=== PATIENT | female | born 1955 | race Caucasian/White ===

== ENCOUNTER → 2021-10-18 12:25 | Outpatient (CLI) | payer MEDICARE, SELFPAY ==
--- NOTE | ~2021-10-18 | MR_ITS ---
EXAMINATION: MR knee RT wo con DATE: 10/18/2021 12:59 INDICATION: Right knee pain. TECHNIQUE: Magnetic resonance imaging (MRI) of the right knee was performed without intravenous contr ast. Sequences included axial PD-weighted FS FSE, coronal PD-weighted FSE and PD-weighted FS FSE, sag ittal PD-weighted FSE, and sagittal T2-weighted FS FSE. COMPARISON: Right knee radiograph 09/27/21 FINDINGS: Medial compartment: Medial meniscus is normal. There is cartilage surface irregularity of tibial condyle. There is shallo w partial-thickness cartilage loss of femoral condyle, worst at the central and lateral articular elena face. Lateral compartment: Lateral meniscus is normal. There is cartilage surface irregularity of tibial condyle. Femoral cartil age is normal. Patellofemoral compartment: There is cartilage surface irregularity of patella. Trochlear cartilage is normal. Ligaments and tendons: The anterior and posterior cruciate ligaments are normal. Medial collateral ligament and lateral britney ateral ligament complex are normal. Patellar tendon is normal. Fluid: There is a small knee joint effusion. There is trace fluid in a Lewis's cyst. IMPRESSION: 1. Mild tricompartmental chondrosis. 2. Small knee joint effusion. Reviewed, dictated and finalized at location A. YTICAL STRATEGIST
== END ==
PROVIDERS: Visit Provider Orthopaedic Surgery
DX: M25.461 Effusion, right knee (principal)
CPT/HCPCS: 73721

== ENCOUNTER 2022-01-12 16:52 | Outpatient (RCR) | payer MEDICARE, SELFPAY ==
--- NOTE | 2022-01-13 13:42 | PTOPEVAL ---
Thank you for referring Shanice Velazquez to [facility].? The patient is scheduled to be seen for therapy? ____x/week for ___ weeks. Please review, sign, date and return this plan of care RAFAL. I agree with and certify that the following plan of care is medically necessary. Referring Physician Date Admitting Provider: Attending Provider: Jeff Georges MD Referring Provider: *PT Outpatient Evaluation Start: 01/12/22 17:07 Freq: Status: Active Protocol: Document 01/12/22 17:05 [facility] (Rec: 01/12/22 17:35 [facility] [id number]) Therapy Assessment Status Assessment Status Assessment Status Evaluation Evaluation Information Problem Diagnosis R knee pain, ITB Onset 11/02/21 Additional Evaluation Detail LEFS = 56% functionally declined Subjective Information patient reports she originally Query Text:As Reported By Patient/ began back in January of 2021 Family when she fell down some stairs . she reports she then had an injection to the R knee in october and her knee swelled up all behind the knee. she reports she then followed up with her surgeon on 01/11/22. she reports she has had an mri of the R knee. 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 MRI shows tricompartmental chondrosis and a knee jt effusion. she reports for a bit of time she was having pain in the outside of the R knee up to the outside of the R hip. she reports she has increased pain crossing her leg over, walking down steps, and driving (hurts to push the gas pedal). Prior Level of Function Comments Additional Prior Level of Function prior to her fall last year, Comments no issues with the R knee. Pain Assessment Timing of Pain Assessment Timing of Pain Assessment Assessment Pain Scale Pain Scale Used Numeric (1 - 10) Self Report Pain Assessment Right Posterior Lateral Knee(s) Reported Pain Level 2 Greatest Pain Intensity 8 Pain Score Pain Score 2: Self Report Interventions Used Interventions Used By Clinicians Medication,Rest Lower Extremity Range of Motion General Lower Extremity Range of Motion Gross Lower Extr
--- NOTE | 2022-02-18 09:16 | PTOPEVAL ---
Thank you for referring Shanice Velazquez to [facility].? The patient is scheduled to be seen for therapy? ____x/week for ___ weeks. Please review, sign, date and return this plan of care RAFAL. I agree with and certify that the following plan of care is medically necessary. Referring Physician Date Admitting Provider: Attending Provider: Jeff Georges MD Referring Provider: *PT Outpatient Evaluation Start: 01/12/22 17:07 Freq: Status: Active Protocol: Document 02/11/22 16:[address] [facility] (Rec: 02/11/22 17:[address] [facility] [id number]) Therapy Assessment Status Assessment Status Assessment Status Evaluation Evaluation Information Problem Diagnosis R knee pain, ITB Onset 11/02/21 Additional Evaluation Detail LEFS = 20% functionally declined Subjective Information Pt reports that she has been Query Text:As Reported By Patient/ able to walk and use steps Family better. She used to have to use steps, one step at a time, rather than going reciprocally. She says that she tried driving for the first time today, but that this exacerbated her knee pain today. Pain Assessment Timing of Pain Assessment Timing of Pain Assessment Pre-Treatment Pain Scale Pain Scale Used Numeric (1 - 10) Self Report Pain Assessment Right Posterior Lateral Knee(s) Reported Pain Level 4 Pain Score Pain Score 4: Self Report Interventions Used Interventions Used By Clinicians Activity or ADL's,Education, Electrical Stimulation, Exercise,Heat Lower Extremity Range of Motion Knee Range of Motion Right Knee Flexion Range of Motion - Active 150 Knee Extension Range of Motion - Active 0 Query Text: Left Knee Flexion Range of Motion - Active 155 Knee Extension Range of Motion - Active 0 Query Text: Lower Extremity Muscle Strength Testing Hip Strength Right Hip Flexion Strength 4- Good - Hip Abduction Strength 4- Good - Left Hip Flexion Strength 4 Good Hip Abduction Strength 4+ Good + Knee Strength Right Knee Flexion Strength 4 Good Knee Extension Strength 4+ Good + Left Knee Flexion Strength 4 Good Knee Extension Strength 4+ Good + Special Tests-Lower Extremity Knee Special Tests Patellofemoral Apprehension Test Negative Left,Positive Right General Exercise General Exercises Exercise Description Ther Ex: Query Text:Record Sets, Reps, - SLR into Flex
--- NOTE | 2022-03-04 22:41 | PTOPEVAL ---
Thank you for referring Shanice Velazquez to [facility].? The patient is scheduled to be seen for therapy? ____x/week for ___ weeks. Please review, sign, date and return this plan of care RAFLA. I agree with and certify that the following plan of care is medically necessary. Referring Physician Date Admitting Provider: Attending Provider: Jeff Georges MD Referring Provider: *PT Outpatient Evaluation Start: 01/12/22 17:07 Freq: Status: Active Protocol: Document 02/25/22 16:00 [facility] (Rec: 03/04/22 22:41 J filej) Therapy Assessment Status Assessment Status Assessment Status Progress Evaluation Information Problem Diagnosis R knee pain, ITB Onset 11/02/21 Subjective Information patient reports to therapy Query Text:As Reported By Patient/ with increased pain again in Family the R knee. she reports she was unable to do much the past week due to her severity of pain. she is worried she is back where she started with therapy. Pain Assessment Timing of Pain Assessment Timing of Pain Assessment Assessment Pain Scale Pain Scale Used Numeric (1 - 10) Self Report Pain Assessment Right Posterior Lateral Knee(s) Reported Pain Level 7 Pain Score Pain Score 7: Self Report Interventions Used Interventions Used By Clinicians Activity or ADL's,Education, Electrical Stimulation, Exercise,Heat Lower Extremity Range of Motion General Lower Extremity Range of Motion Reason Not Measured WNL/Right Palpation Assessment Palpation Palpation tenderness to palpation of the R lateral knee along the ITB and lateral hamstrings band. she is also tender to palpation up the ITB to the greater trochanter of the R hip. Special Tests-Lower Extremity Knee Special Tests Anterior Drawer Negative Right Posterior Drawer Negative Right Valgus Stress Test Knee at 0 Degrees Negative Right Varus Stress Test Knee at 0 Degrees Negative Right Yissel's Negative Right Gait Assessment Gait Pattern Assessment Other Gait Observations patient ambulates with very mild antalgia favoring the R LE. General Exercise General Exercises Exercise Description Ther ex Query Text:Record Sets, Reps, -passive hamstrings stretching Resistance, and Position 10 minutes
--- NOTE | 2022-04-18 16:54 | PCPTNOTE ---
Mrs. Velazquez has failed to return to the clinic at this time and will be discharged from our care. Refer to her last daily note for discharge status.
== END 2022-02-28 23:59 | disposition home or self-care (01) ==
LOC: CHSPT 16:52
PROVIDERS: Visit Provider Orthopaedic Surgery
DX: M25.561 Pain in right knee (principal)
CPT/HCPCS: 97014; 97110; 97140; 97161; G0283

== ENCOUNTER 2022-05-26 11:16 | Emergency (ER) | payer MEDICARE, SELFPAY ==
--- NOTE | ~2022-05-26 | CT_ITS ---
EXAMINATION: CT abdomen pelvis w con DATE: 05/26/2022 14:01 INDICATION: Abdominal pain. History of diverticulitis. TECHNIQUE: Computed tomography (CT) of the abdomen and pelvis was performed with 100 cc Omnipaque 350 intravenous contrast. The dose-length product was 452.45 mGy-cm. Automated exposure control and iter ative reconstruction technique were employed. COMPARISON: None. FINDINGS: There is dependent atelectasis. No significant pleural or pericardial effusion. Heart size normal. The liver, spleen, pancreas, adrenal glands and kidneys are unremarkable. Gallbladder is pres ent. Colonic diverticulosis without evidence for diverticulitis. Small sclerotic lesion in the sacrum , most likely benign bone island. No free air or free fluid. Nonobstructive bowel pattern. Small fat- containing umbilical hernia. No abnormal pelvic masses are fluid collections. Status post hysterectom y. IMPRESSION: 1. No acute abdominal abnormality. Reviewed, dictated and finalized at location A.
[2022-05-26 11:21] VITALS: BP 125/86; PULSE 91; RESP 18; TEMP 36.4; O2SAT 100
[2022-05-26 12:35] LABS: Basophils Percent Auto 0.6 % (0.2-1.2); Eosinophils Absolute Auto 0.1 K/mm3 (0-0.3); Hemoglobin 15.8 g/dL (12.0-15.0); Immature Granulocyte Absolute 0.01 K/mm3 (0.00-0.031); Immature Granulocyte Percent A 0.2 % (0-0.5); Lymphocytes Absolute Auto 2.03 K/mm3 (0.9-3.2); Lymphocytes Percent Auto 39.2 % (18.3-44.2); Mean Corpuscular HGB Conc 32.2 g/dl (32-36); Mean Corpuscular Hemoglobin 30.9 pg (26-34); Mean Corpuscular Volume 95.7 fl (80-100); Mean Platelet Volume 10.6 fl (7.4-10.4); Monocytes Absolute Auto 0.7 K/mm3 (0.1-0.6); Monocytes Percent Auto 13.5 % (2.6-8.5); Neutrophils Absolute Auto 2.4 K/mm3 (1.3-6.7); Neutrophils Percent Auto 45.5 % (45.5-73.1); Platelet Count Result 266 k/mm3 (150-375); Red Blood Count 5.12 M/mm3 (4.2-5.4); Red Cell Distribution Width 12.3 % (11.5-14.5); White Blood Count 5.2 K/mm3 (4.5-10.0)
[2022-05-26 12:46] LABS: Alanine Aminotransferase 26 U/L (6-35); Albumin Level 4.6 g/dL (3.5-5.1); Alkaline Phosphatase 84 U/L (38-126); Anion Gap 9 mmol/L (8-16); Aspartate Amino Transferase 31 U/L (14-36); Bilirubin,Total 0.5 mg/dL (0.2-1.3); Blood Urea Nitrogen 15 mg/dL (7-17); Calcium 9.6 mg/dL (8.4-10.2); Carbon Dioxide 26 mmol/L (22-30); Chloride 104 mmol/L (98-107); Estimated CRCL calculation 59 ml/min; Estimated Glomerular Filt Rate > 60; Glucose 111 mg/dL (65-110); Lipase 110 U/L (23-300); Potassium 4.7 mmol/L (3.4-5.0); Sodium 139 mmol/L (137-145)
[2022-05-26 13:12] LABS: Appearance Urine Clear (Clear); Bilirubin Urine 1+ (Negative); Blood Urine Negative (Negative); Color Urine Yellow (Yellow); Glucose Urine UA Negative (Negative); Ketones Urine 1+ mg/dL (Negative); Leukocyte Esterase Ur Negative LEU/UL (Negative); Nitrate Urine Negative (Negative); Protein Urine Negative (Negative); pH Urine 6.5 (5.0-9.0)
[2022-05-26 13:40] LABS: Mucus Urine Rare /lpf; Squamous Epithelial Cell Urine Rare /hpf (Few); WBC Urine 0-3 /hpf
[2022-05-26 13:43] LABS: Add Urine Microscopic? YES
[2022-05-26] MEDS: SODIUM CHLORIDE 0.9% IV 1,000 ML 999 ML IV CONT (14:09)
--- NOTE | 2022-05-26 14:10 | ED.ABDPAIN ---
HPI - Abdominal Pain General Chief Complaint: Abdominal Pain Stated Complaint: abd pain Time Seen by Provider: 05/26/22 13:14 Source: RN notes reviewed History of Present Illness HPI narrative: Patient presents emergency room from home for abdominal pain. Patient states symptoms began approximately 2 weeks ago. The pain is located left lower quadrant does not radiate described as sharp and stabbing. States that she has a history of diverticulitis and was seen by her PCP diagnosed diverticulitis and started on Augmentin which she completed a course of but continued have pain and came in for further evaluation. She denies any fevers or chills nausea vomiting diarrhea or any other symptoms states she has not taken any Tylenol or ibuprofen today Related Data Home Medications Medication Instructions Recorded Confirmed aspirin 81 mg capsule 81 mg PO DAILY 09/27/21 01/07/22 multivitamin with minerals-ferrous tablet PO DAILY 09/27/21 01/07/22 sulfate 4.5 mg iron tablet (One Daily Multivitamins with Minerals) Allergies Allergy/AdvReac Type Severity Reaction Status Date / Time azithromycin Allergy Unknown Palpitation Verified 01/07/22 09:01 s clonazepam Allergy Unknown Unknown Verified 01/07/22 09:01 codeine Allergy Unknown Hallucinati Verified 01/07/22 09:01 ng morphine Allergy Unknown Hypotension Verified 01/07/22 09:01 Review of Systems Review of Systems: Gen.: Denies fevers or chills ENT: Denies congestion Respiratory: Denies shortness of breath or cough CV: Denies chest pain or palpitations GI: See HPI denies burning, urgency, frequency or hematuria Musculoskeletal: Denies back pain or muscle pain Neuro: Denies numbness, tingling, weakness or focal weakness Skin: Denies rash Except as documented, all other systems reviewed and negative [facility] Past Medical History Medical History Fibromyalgia History of hemangioma History of pulmonary embolism Approx. 2001 Surgical History Surgical History History of ankle surgery 2013 plates and screws Hx of hysterectomy 1989 Family History Family History Other Bladder cancer Carcinoma of colon Depression Social History Social History Substance use: never Gender identity (if verbalized by the patient): Female Exam Narrative: APPEARANCE: No acute distress, nontoxic, resting in bed HEENT: Normocephalic, atraumatic, OMM RESPIRATORY: No respiratory distress, clear to auscultation bilaterally with no rhonchi wheezing or rales CARDIOVASCULAR: RRR s murmur ABDOMINAL: Soft nondistended tender palpation left lower quadrant no tenderness left upper quadrant, right upper quadrant right lower quadrant no rebound or guarding MUSCULOSKELETAl: Moves all extremities. No clubbing, cyanosis or edema. NEURO: Awake and alert. Following commands, speech normal, no focal deficits SKIN:: Warm, dry. Normal Color PSYCHIATRIC: Normal affect/mood Course Course Emergency Course: Repeat abdominal exam shows the patient's abdomen to be soft with no surgical abdomen present. Discussed with patient results of workup and diagnosis. Discussed need for follow-up with primary care physician, reasons to return to the emergency department in proper use of medication. Patient understands and agrees to current treatment plan Vital Signs Vital signs: Vital Signs Temperature 97.6 F 05/26/22 11:21 Pulse Rate 91 05/26/22 11:21 Respiratory Rate 18 05/26/22 11:21 Blood Pressure 125/86 05/26/22 11:21 Pulse Oximetry 100 05/26/22 11:21 Oxygen Delivery Room Air 05/26/22 11:21 Temperature 97.6 F 05/26/22 11:21 Pulse Rate 91 05/26/22 11:21 Respiratory Rate 18 05/26/22 11:21 Blood Pressure 125/86 05/26/22 11:21 Pulse Oxim
[2022-05-26 14:41] VITALS: BP 130/88; PULSE 86; RESP 14; O2SAT 98
== END 2022-05-26 14:41 | disposition home or self-care (01) ==
PROVIDERS: Emergency Medicine; Emergency Provider Emergency Medicine; PCP Family Medicine
DX: R10.32 Left lower quadrant pain (principal); M79.7 Fibromyalgia; Z86.711 Personal history of pulmonary embolism; Z79.82 Long term (current) use of aspirin
CPT/HCPCS: 36415; 74177; 80053; 81001; 83690; 85025; 96365; 99284; J0131; J7030; Q9967

== ENCOUNTER 2022-06-16 12:02 | Outpatient (CLI) | payer MEDICARE, SELFPAY ==
[2022-06-16 12:29] LABS: Add Urine Microscopic? YES; Appearance Urine Cloudy (Clear); Bacteria Urine Trace /hpf; Bilirubin Urine Negative (Negative); Blood Urine 1+ (Negative); Color Urine Yellow (Yellow); Glucose Urine UA Negative (Negative); Ketones Urine Negative (Negative); Leukocyte Esterase Ur 3+ LEU/UL (Negative); Mucus Urine Rare /lpf; Nitrate Urine Negative (Negative); Protein Urine Negative (Negative); RBC Urine 0-2 /hpf (0-2); Specific Grav Ur 1.021 (1.001-1.035); Squamous Epithelial Cell Urine Rare /hpf (Few); Urobilinogen Urine Negative mg/dL (<2.0); WBC Urine 16-20 /hpf
== END 2022-06-16 12:03 | disposition home or self-care (01) ==
PROVIDERS: PCP Family Medicine; Visit Provider Internal Medicine Gastroenterology
DX: R30.0 Dysuria (principal)
CPT/HCPCS: 81001; 87077; 87086; 87186

== ENCOUNTER 2022-07-20 01:12 | Day surgery (SDC) | payer MEDICARE, SELFPAY ==
[2022-07-05 13:32] VITALS: BMI 23.4
--- NOTE | 2022-07-20 08:38 | WPDANESEPPF ---
Anes - Initial Pre Proc Eval Procedure: Operation Date: 07/20/22 11:15 Proposed Procedures p Esophagogastroduodenoscopy & Colonoscopy - Dale Rausch MD Date/Time: 07/20/22 08:38 Surgeon: Dale Rausch MD Pre Op Diagnosis: abd distention, LLQ pain, fam hx colon cancer Patient Data Age: 66 Gender: F Height: 1.7 m Weight: 68 kg Allergies Allergy/AdvReac Type Severity Reaction Status Date / Time azithromycin Allergy Unknown Palpitation Verified 07/20/22 09:59 s clonazepam Allergy Unknown Unknown Verified 07/20/22 09:59 codeine Allergy Unknown Hallucinati Verified 07/20/22 09:59 ng morphine Allergy Unknown Hypotension Verified 07/20/22 09:59 Home Medications Medication Instructions Recorded Confirmed Type aspirin 81 mg capsule 81 mg PO DAILY 09/27/21 07/05/22 History multivitamin with minerals-ferrous 1 tablet PO DAILY 09/27/21 07/05/22 History sulfate 4.5 mg iron tablet (One Daily Multivitamins with Minerals) sertraline 100 mg tablet (Zoloft) 100 mg PO DAILY #30 tabs 11/02/21 07/05/22 Rx acyclovir 400 mg tablet 400 mg PO .PRN 06/16/22 07/05/22 History lorazepam 1 mg tablet 1 mg PO DAILY PRN aniety 06/16/22 07/05/22 History Patient hx anesthesia problems: none Family hx anesthesia problems: none Results Review: All pre-operative results and documents have been reviewed as part of the pre-operative evaluation. [facility] Past Medical History Medical History (Updated 06/16/22 @ 12:01 by Dale Rausch MD) Bloating Colon, diverticulosis Dysuria Family history of colon cancer in mother Fibromyalgia History of hemangioma History of pulmonary embolism Approx. 2001 LLQ pain Surgical History Surgical History History of ankle surgery 2013 plates and screws Hx of hysterectomy 1989 Family History Family History Other Bladder cancer Carcinoma of colon Depression Social History Social History (Reviewed 06/16/22 @ 11:25 by Liz Burroughs CMAGeorge Smoking status: Never smoker Alcohol intake: never Substance use: never Substance use type: does not use Living arrangements: with family Gender identity (if verbalized by the patient): Female Spiritual care concerns: No Anes - Eval Final PreProcedure Day of Procedure 07/20/22 08:38 Patient weight: normal Heart: regular rate and rhythm Lungs: clear to auscultation and normal air movement Airway: Mallampati scale class II Neurological: alert and oriented Last oral intake: >/= 8 hours ASA classification: II Emergent: no Anesthetic plan: proceed Anesthesia type and monitoring: general GIVS Results Review: All pre-operative results and documents have been reviewed as part of the pre-operative evaluation. Informed Consent: The patient's anesthetic plan and its attendant risks and benefits were discussed with the patient/family/POA. Questions were solicited and answers provided to the satisfaction of the patient/family/POA.
[2022-07-20 10:00] VITALS: BP 134/97; PULSE 93; RESP 18; TEMP 36.1; O2SAT 100
[2022-07-20] MEDS: LACTATED RINGERS 1,000 ML 150 ML IV CONT (10:11)
--- NOTE | 2022-07-20 10:55 | PM.HPGS ---
History of Present Illness History of Present Illness Consent: Risks, benefits, and alternatives have been discussed and questions answered. Patient agrees to proceed with procedure. Chief complaint: abd distention, LLQ pain, fam hx colon cancer Narrative: Shanice Velazquez is a 66 year old female here for first EGD and colonoscopy, had intermittent pain in llq and also bloating. Mother had colon cancer. Review of Systems Constitutional: Constitutional: Denies headache(s) and Denies weakness Eyes: Eyes: Denies blurry vision ENT: Reports Normal hearing present, Denies headache(s) and Denies neck pain Cardiovascular: Cardiovascular: Denies chest pain and Denies dyspnea Respiratory: Respiratory: Denies dyspnea Gastrointestinal: Gastrointestinal: Reports no additional gastrointestinal complaints Genitourinary: Genitourinary: Denies dysuria Musculoskeletal: Musculoskeletal: Denies neck pain Integumentary/Breasts: Skin/Breast: Denies dry skin Neurologic: Reports Normal hearing present, Denies headache(s) and Denies weakness Psychiatric: Psychiatric: Denies anxiety Endocrine: Endocrine: Denies change in body appearance Hematologic/Lymphatic: Hematologic/Lymphatic: Denies easy bleeding Allergic/Immunologic: Allergic/Immunologic: Denies urticaria PMFSH Past Medical History Medical History (Updated 06/16/22 @ 12:01 by Dale Rausch MD) Bloating Colon, diverticulosis Dysuria Family history of colon cancer in mother Fibromyalgia History of hemangioma History of pulmonary embolism Approx. 2001 LLQ pain Surgical History Surgical History History of ankle surgery 2013 plates and screws Hx of hysterectomy 1989 Family History Family History Other Bladder cancer Carcinoma of colon Depression Social History Social History Smoking status: Never smoker Alcohol intake: never Substance use: never Substance use type: does not use Living arrangements: with family Gender identity (if verbalized by the patient): Female Spiritual care concerns: No Meds Home Medications and Allergies Home Medications Medication Instructions Recorded Confirmed Type aspirin 81 mg capsule 81 mg PO DAILY 09/27/21 07/05/22 History multivitamin with minerals-ferrous 1 tablet PO DAILY 09/27/21 07/05/22 History sulfate 4.5 mg iron tablet (One Daily Multivitamins with Minerals) sertraline 100 mg tablet (Zoloft) 100 mg PO DAILY #30 tabs 11/02/21 07/05/22 Rx acyclovir 400 mg tablet 400 mg PO .PRN 06/16/22 07/05/22 History lorazepam 1 mg tablet 1 mg PO DAILY PRN aniety 06/16/22 07/05/22 History Allergies Allergy/AdvReac Type Severity Reaction Status Date / Time azithromycin Allergy Unknown Palpitation Verified 07/20/22 09:59 s clonazepam Allergy Unknown Unknown Verified 07/20/22 09:59 codeine Allergy Unknown Hallucinati Verified 07/20/22 09:59 ng morphine Allergy Unknown Hypotension Verified 07/20/22 09:59 Vital Signs Vital Signs - 24 hr 07/20/22 10:00 Temperature 97 F L Pulse Rate 93 Respiratory Rate 18 Blood Pressure 134/97 H Pulse Oximetry 100 Oxygen Delivery Room Air Exam Const: General: comfortable and no acute distress HENMT: Face/Nose/Sinus: Normal nares present Eyes: General: appearance normal, both eyes and all related structures Neck: Neck: no JVD Resp: Auscultation: clear to auscultation bilaterally Cardio: Rate: regular rate Rhythm: regular rhythm GI: Inspection: non-distended GI Palp: Yes Soft to palpation Skin: General skin exam: normal color Neuro: General: gait normal Speech: normal speech Extrem: General: normal to inspection Psych: Mental Status: mental status grossly normal Assessment and Plan Assessment and plan (1) Bloating: Co
--- NOTE | 2022-07-20 11:14 | SUR.OPER ---
EGD: [id number] COLON: [id number]
[2022-07-20 11:32] VITALS: BP 90/53; PULSE 82; RESP 22; O2SAT 100
[2022-07-20 11:42] VITALS: BP 97/65; PULSE 77; RESP 16; O2SAT 100
[2022-07-20 11:52] VITALS: BP 107/60; PULSE 68; RESP 17; O2SAT 100
== END 2022-07-20 12:08 | disposition home or self-care (01) ==
PROVIDERS: PCP Family Medicine; Visit Provider Internal Medicine Gastroenterology
PROC: 0DJ08ZZ Inspection of Upper Intestinal Tract, Via Natural or Artificial Opening Endoscopic (ICD-10-PCS; CPT 43235; principal; 2022-07-20 11:15)
DX: D12.3 Benign neoplasm of transverse colon (principal); D12.5 Benign neoplasm of sigmoid colon; K57.30 Diverticulosis of large intestine without perforation or abscess without bleeding; K64.8 Other hemorrhoids; Z80.0 Family history of malignant neoplasm of digestive organs; R14.0 Abdominal distension (gaseous)
CPT/HCPCS: 45380; 45385; 43239; 88305; J2370; J2704; J3010; J7120

== ENCOUNTER 2023-07-11 08:13 | Outpatient (CLI) | payer MEDICARE, SELFPAY ==
--- NOTE | ~2023-07-11 | XR_ITS ---
XR knee RT min 4V 07/11/2023 08:52 Indication: Right knee pain Procedure: 4 views right knee Comparison: 09/27/2021 Findings: No fracture, subluxation or dislocation. No joint effusion. No foreign bodies. No significa nt joint space narrowing. There is anatomic alignment. Impression: 1: No significant bone or joint abnormality. Reviewed, dictated and finalized at location L. TANNER Impression: 1: No significant bone or joint abnormality.
== END 2023-07-11 08:14 | disposition home or self-care (01) ==
LOC: CHSLAB 08:17
PROVIDERS: PCP Family Medicine; Visit Provider Orthopaedic Surgery
DX: M25.561 Pain in right knee (principal)
CPT/HCPCS: 73564

== ENCOUNTER 2024-11-08 16:27 | Emergency (ER) | payer MEDICARE, SELFPAY ==
--- NOTE | ~2024-11-08 | XR_ITS ---
HISTORY: Fall, b/l wrist pain COMPARISON: None TECHNIQUE: 3 views of the left wrist were performed. FINDINGS: No acute fracture is identified. The carpal arcs are intact. Mild radiocarpal joint space narrowing with sclerosis of the distal radius is present. The remaining visualized joint spaces are otherwise preserved. Bone mineralization is unremarkable. No significant soft tissue swelling is noted. No radiopaque foreign body is identified. IMPRESSION: No acute fracture, Reviewed, dictated and finalized at location A. IMPRESSION: No acute fracture,
--- NOTE | ~2024-11-08 | XR_ITS ---
HISTORY: Fall, b/l knee pain COMPARISON: 07/11/2023 TECHNIQUE: 3 views of the right knee were performed. FINDINGS: No acute or subacute fracture, erosion, lytic or sclerotic lesion. Medial tibiofemoral joint space narrowing is identified. No suprapatellar joint effusion is identified. The infrapatellar joint space is clear. IMPRESSION: No acute fracture, as detailed above. Reviewed, dictated and finalized at location A.
--- NOTE | ~2024-11-08 | XR_ITS ---
HISTORY: Fall, b/l knee pain, Lt. knee swelling COMPARISON: None TECHNIQUE: 3 views of the left knee were performed FINDINGS: No acute or subacute fracture, erosion, lytic or sclerotic lesion. Significant medial tibiofemoral joint space narrowing is identified. Small suprapatellar joint effusion is identified. The infrapatellar joint space is clear. IMPRESSION: Small suprapatellar joint effusion. Significant degenerative disease. No acute fracture. Reviewed, dictated and finalized at location A.
--- NOTE | ~2024-11-08 | XR_ITS ---
HISTORY: Fall, b/l wrist pain COMPARISON: None TECHNIQUE: 3 views of the right wrist were performed. FINDINGS: No acute fracture is identified. The carpal arcs are intact. Mild radiocarpal joint space narrowing with sclerosis of the distal radius is present. The remaining visualized joint spaces are otherwise preserved. Bone mineralization is unremarkable. No significant soft tissue swelling is noted. No radiopaque foreign body is identified. IMPRESSION: No acute fracture within the right wrist, as detailed Reviewed, dictated and finalized at location A.
[2024-11-08 16:27] VITALS: BP 156/68; PULSE 66; RESP 16; TEMP 36.2; O2SAT 98
--- OUTSIDE RECORDS SUMMARY | 2024-11-08 16:29 | XMS_ITS | Clinical Summary ---
Author Organization [facility] Address [address] [place] [address] Care Team Providers Care Lead Worker Of Housekeeping And Laundry Name Role Phone Emile Gongora MD Primary Care Provider [phone] Allergies Active Allergy Reactions Criticality Noted Date Comments Clonidine Rash Medium 02/06/2021 Corticosteroids (Glucocorticoids) Palpitations Low 02/06/2021 Gabapentin Headache Low 02/06/2021 Hydrocodone-Acetaminophen Hallucinations Medium 2020 Pregabalin Palpitations Low 02/06/2021 Meloxicam Unknown 02/06/2021 Methylprednisolone Palpitations Low 02/06/2021 Morphine Hallucinations Medium 02/06/2021 Naproxen Rash Medium 02/06/2021 Topiramate Headache Low 02/06/2021 Tramadol Itching Low 02/06/2021 Oxcarbazepine Rash Medium 02/06/2021 Azithromycin Palpitations Low 02/06/2021 Zonisamide Other (See comments) Low 02/06/2021 Tingling Medications fluticasone propionate (CUTIVATE) 0.005 % ointment fluticasone propionate 0.005 % topical ointment Active fluticasone propionate (FLONASE) 50 mcg/actuation nasal spray fluticasone 50 mcg/actuation nasal spray,suspensio n One spray in each nostril bid as needed Active Lactobacillus acidophilus 10 billion cell capsule Probiotic Take 1 Tablet by oral route daily Active LORazepam (ATIVAN) 2 mg tablet lorazepam 2 mg tablet TAKE 1 TABLET BY MOUTH ONCE DAILY NEEDED FOR ANXIETY 8 Active mupirocin (BACTROBAN) 2 % creamIndications :peritoneal dialysis catheter care Apply topically 3 (three) times a day Active sertraline (ZOLOFT) 100 mg tablet Take 1 tablet (100 mg total) by mouth daily 90 tablet 4 3 Active Active Problems Problem Noted Date Diagnosed Date Recurrent major depression 05/13/2022 Elbow sprain, right, initial encounter Right wrist sprain, initial encounter 02/06/2021 Contusion of right knee 02/06/2021 Contusion of left knee 02/06/2021 Sprain of anterior talofibular ligament of left ankle 02/06/2021 Contusion of fifth toe of right foot 02/06/2021 Contusion of fourth toe of left foot 02/06/2021 Accidental fall on or from stairs or steps 02/06 Encounters Date Type Department Care Team Description 11/08/2024 [facility] [address] [address] Diane Garcia MA 10/28/[address] [address] Diane Garcia MA Unsuccessful Phone Call 1 (Mahesh CHAUHAN) from Last 3 Months Immunizations Immunization Administration Dates Next Due Influenza, Quadrivalent, Rec ombinant, Egg Free, Preservative Free, Intramuscular 07/10/2020 Influenza, Unspecified 05/13/2022(Deferr ed: Patient Refused),04/21/2021(Deferred: Patient Refused) Pfizer SARS-CoV-2 Monovalent Vaccination (12+ Yrs) PURPLE 03/07/2022,11/14/2020,10/24/2020 Surgical History Surgery Date Site/Laterality Comments ANKLE SURGERY HYSTERECTOMY APPENDECTOMY ELBOW SURGERY Medical History Medical History Date Comments Depression Back pain Right arm pain Family History Medical History Relation Name Comments Bladder Cancer Father Colon cancer Mother Relation Name Status Comments Father Alive Mother Social History Tobacco Use Types Packs/Day Years Used Date Smoking Tobacco: Never Smokeless Tobacco: Never Tobacco Cessation:Counseling Given: Not Answered PHQ-2 Answer Date Recorded PHQ-2 Total Score 0 05/13/2022 Comments No Sex and Gender Information Value Date Recorded Sex Assigned at Not on file 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 Gender Identity Not on file Sexual Orientation Not on file Obstetrics History Last Filed Vital Signs Vital Sign Reading Time Taken Comments Blood Pressure 116/78 05/13/2022 8:47 AM CDT Pulse 100 05/13/2022 8:47 AM CDT Temperature 36.4 C (97.6 F) 05/13/2022 8:47 AM CDT Respiratory Rate 16 05/13/2022 8:47 AM CDT Oxygen Saturation 96% 05/13/2022 8:47 AM CDT Inhaled Oxygen Concentration - - Weight 71.4 kg (157 lb 6.4 oz) 05/13/2022 8:47 A M CDT Height 170.2 cm (5' 7 ) 05/26/2021 1:58 PM CDT Body Mass Index 24.65 05/26/2021 1:58 PM CDT Plan of Treatment Health Maintenance Due Date Last Done Comments Breast Cancer Screening-Mammogram 1955 Hepatitis C Screening 1955 Osteoporosis Screening-Bone Density Scan 1955 DTaP/Tdap/Td Vaccine (1 - Tdap) 1966 Hepatitis B Screening 1973 Pneumococcal vaccine 65+ (1 of 1 - PCV) 2005 Zoster Vaccine (1 of 2) 2005 Well Visit 65+ 2020 Depression Screening 05/13/2023 05/13/2022 Fall Risk Assessment 05/13/2023 05/13/2022 Covid-19 Vaccine (6 - 2023-2 5 season) 2024 03/07/2022, 03/07/2022, 07/22/2021, Additional history exists Influenza Vaccine (#1) 2024 07/10/2020 Colon Cancer Screening-Colonoscopy 07/20/2032 07/20/2022 Colon Cancer Screening-CT Colonography Discontinued 07/20/2022 Colon Cancer Screening-DNA Stool Discontinued 07/20/20 Colon Cancer Screening-FIT Discontinued 07/20/2022 Colon Cancer Screening-Sigmoidoscopy Discontinued 07/20/2022 Procedures Procedure Name Priority Date/Time Associated Diagnosis Comments HM COLONOSCOPY Routine 07/20/2022 from Last 3 Months or Most Recently Relevant to Health Maintenance Results * HM COLONOSCOPY (07/20/2022) us Historical Provider HEALTH MAINTENANCE Edited Result - Final from Last 3 Months or Most Recently Relevant to Health Maintenance Insurance [facility] [place] [id number] [employer] MEDICARE Care Teams Lead Worker Of Housekeeping And Laundry Relationship Specialty Start Date End Date Emile Gongora MD [address] [place] [address] PCP - General Family Medicine 05/23/22
--- OUTSIDE RECORDS SUMMARY | 2024-11-08 16:29 | XMS_ITS | Encounter Summary ---
Author Organization [facility] Address [address] [place] [address] Care Team Providers Care Electrode Cleaning Machine Operator Name Role Phone Emile Gongora MD Primary Care Provider [phone] Reason for Visit * Reason Comments Chart Review [employer] AWV Encounter Details Date Type Department Care Team (Late st Contact Info) Description 11/08/2024 [facility] Care Organization [address] [place] [address] Diane Garcia MA [address] [facility] [address] [place] [address] Social History Tobacco Use Types Packs/Day Years Used Date Smoking Tobacco: Never Smokeless Tobacco: Never PHQ-2 Answer Date Recorded PHQ-2 Total Score 0 05/13/2022 Comments No Sex and Gender Information Value Date Recorded Sex Assigned at Not on file 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 Patient has been identified by their insurance plan to have a [employer] AWV gap in care. Chart has been scrubbed and Patietn scheduled for AWV on 05/20/2025 . Current open gaps in care: [employer] AWV NEGRA Stephenson Patient Quality Glove Operator [facility] Accountable care Org (ACO) [phone] documented in this encounter Plan of Treatment Not on file documented as of this encounter Visit Diagnoses Not on filedocumented in this encounter Care Teams Electrode Cleaning Machine Operator Relationship Specialty Start Date End Date Emile Gongora MD [address] [place] [address] PCP - General Family Medicine 05/23/22 documented as of this encounter
--- OUTSIDE RECORDS SUMMARY | 2024-11-08 16:29 | XMS_ITS | Encounter Summary ---
Author Organization [facility] Address [address] [facility] [address] [place] [address] Phone Care Team Providers Care Program Professional Name Role Phone Miscellaneous, Not In File Primary Care Provider Unavailable Miscellaneous, Not In File Primary Care Provider Unavailable Emile Gongora MD Primary Care Provider [phone] Encounter Details Date Type Department Care Team (Late st Contact Info) Description 08/05/2018 Ophth Exam [facility] Ophthalmology [address] [place] [address] [address] [place] [address] Taty Hernandez MD PhD [address] [place] [address] Social History Tobacco Use Types Packs/Day Years Used Date Smoking Tobacco: Never Assessed Comments Unknown Sex and Gender Information Value Date Recorded Sex Assigned at Not on file 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 Gender Identity Not on file Sexual Orientation Not on file documented as of this encounter Plan of Treatment Not on file documented as of this encounter Visit Diagnoses Not on filedocumented in this encounter Additional Health Concerns Infection Onset Date Last Indicated Resolved Time COVID: Suspected 05/26/2021 05/26/2021 05/26/2021 2:31 PM CDT documented as of this encounter Eye Exam Visual Acuity (near card) Right eye Left eye Near sc 20/20 20/20 Tonometry (Tonopen, 2:00 AM) Right eye Left eye Pressure 11 10 Pupils Pupils Dark Light Shape React APD Right eye PERRL 4 2 Round Brisk None Left eye PERRL 4 2 Round Brisk None Visual Menard Right eye Left eye Full Full Extraocular Movement Right eye Left eye Full Full Neuro/Psych Oriented x3: Yes Mood/Affect: Normal Dilation Both eyes: 1.0% Mydriacyl, 2 .5% Phenylephrine @ 8:33 AM External Exam Right eye Left eye External Normal Normal Slit Lamp Exam Right eye Left eye Lids/Lashes Normal Normal Conjunctiva/Sclera White and quiet White and radha et Cornea Clear Clear Anterior Chamber Shallow by VanHerick, quiet Sha llow by VanHerick, quiet Iris Round and reactive Round and brian ctive Lens Clear Clear Vitreous Normal, no surendra's sign Normal, no surendra's sign. Large PVD Fundus Exam Right eye Left eye Disc Normal Normal C/D Ratio 0.3 0.3, pigmented r im superonasally Macula Normal Normal Vessels Normal Normal Periphery No RT/RD or heme No RT/RD or hem e on scleral depressed exam Care Teams Program Professional Relationship Specialty Start Date End Date Miscellaneous, Not In File PCP - General 08/04/18 Miscellaneous, Not In File PCP - General 05/13/22 [place] [address] PCP - General Family Medicine 05/23/22 documented as of this encounter
--- OUTSIDE RECORDS SUMMARY | 2024-11-08 16:29 | XMS_ITS | Data Portability ---
Author Organization [facility] - Milka Elias frederickDIANN_[place]IS[place]G_[place] [facility]_U Address [address] [place] [address] Care Team Providers Care Ditch Repairer Name Role Phone MASON CAPUTO II Primary Care Provider Assessment No assessment recorded. Plan of Treatment Reminders Order Date Submit Date Provider Last Modified By Organization Details Last Modified Time Details Appointments None record ed. Lab None record ed. Referral None record ed. Procedures None record ed. Surgeries None record ed. Imaging None record ed. Medication Orders None record ed. Patient TargetsNo targets recorded. Patient Instructions Encounter Date Encounter Id Patient Instructions Last Modified By Organization Details Last Modified Time 08/02/2019 [id number] healthy upper back: exercises [email or web address] Not available 08/02/2019 15:54:17 08/29/2019 [id number] healthy upper back: exercises [email or web address] Not available 09/04/2019 08:36:54 09/13/2019 [id number] healthy upper back: exercises [email or web address] Not available 09/14/2019 22:27:22 10/25/2019 [id number] healthy upper back: exercises [email or web address] Not available 10/27/2019 15:47:10 02/14/2020 [id number] healthy upper back: exercises [email or web address] Not available 02/14/2020 10:11:24 Reason for Referral None Reported. Results Created Date Observation Date Name Description Value Unit Range Abnormal Flag Note LastModifiedBy Organization Detail LastModifiedTime 07/12/20 19 07/12/2019 urina lysis , compl ete UA color YELLOW Not Available [facility] (Lab) [address] [place], [address], 07/12/2019 22:15:33 07/12/20 19 07/12/2019 urina lysis , compl ete UA appear CLEAR Not Available [facility] (Lab) [address] [place], [address], 07/12/2019 22:15:33 07/12/20 19 07/12/2019 urina lysis , compl ete UA spec grav 1.003 1.005- 1.029 low Not Available [facility] (Lab) [address] [place], [address], 07/12/2019 22:15:33 07/12/20 19 07/12/2019 urina lysis , compl ete UA pH 7.0 5.0-7. 0 Not Available [facility] (Lab) [address] [place], [address], 07/12/2019 22:15:33 07/12/20 19 07/12/2019 urina lysis , compl ete UA protein NEG negati ve Not Available [facility] (Lab) [address] [place], [address], 07/12/2019 22:15:33 07/12/20 19 07/12/2019 urina lysis , compl ete UA glucose NEG negati ve Not Available [facility] (Lab) [address] [place], [address], 07/12/2019 22:15:33 07/12/20 19 07/12/2019 urina lysis , compl ete UA ketones NEG negati ve Not Available [facility] (Lab) [address] [place], [address], 07/12/2019 22:15:33 07/12/20 19 07/12/2019 urina lysis , compl ete UA bili NEG negati ve Not Available [facility] (Lab) [address] [place], [address], 07/12/2019 22:15:33 07/12/20 19 07/12/2019 urina lysis , compl ete UA blood NEG negati ve Not Available [facility] (Lab) [address] [place], [address], 07/12/2019 22:15:33 07/12/20 19 07/12/2019 urina lysis , compl ete UA nitrite NEG negati ve Not Available [facility] (Lab) [address] [place], [address], 07/12/2019 22:15:33 07/12/20 19 07/12/2019 urina lysis , compl ete UA urobilinogen 0.2 eu/dL 0.2-1. 0 Not Available [facility] (Lab) [address] [place] [address], [address], 07/12/2019 22:15:33 07/12/20 19 07/12/2019 urina lysis , compl ete UA leuk est NEG negati ve Not Available [facility] (Lab) [address] [place], [address], 07/12/2019 22:15:33 07/12/20 19 07/12/2019 urina lysis , compl ete UA WBC 0 /hpf 0-5 Not Available [facility] (Lab) [address] [place], [address], 07/12/2019 22:15:33 07/12/20 19 07/12/2019 urina lysis , compl ete UA RBC 0 /hpf 0-4 Not Available [facility] (Lab) [address] [place], [address], 07/12/2019 22:15:33 07/12/20 19 07/12/2019 urina lysis , compl ete UA bacteria NEGATI VE Not Available [facility] (Lab) [address] [place], [address], 07/12/2019 22:15:33 07/12/20 19 07/12/2019 urina lysis , compl ete UA sq epithel 1 /hpf 0-9 Not Available [facility] (Lab) [address] [place] [address], [address], 07/12/2019 22:15:33 07/12/20 19 07/12/2019 urina lysis , compl ete UA hyal cast 0 /lpf 0-8 Not Available [facility] (Lab) [address] [place] [address], [address], 07/12/2019 22:15:33 07/12/20 19 07/12/2019 CBC WBC 4.9 x1000 /mm3 4.5-10 .3 Not Available [facility] (Lab) [address] [place] [address], [address], 07/12/2019 22:32:07 07/12/20 19 07/12/2019 CBC RBC 5.25 x1000 000/m m3 4.20-5 .40 Not Available [facility] (Lab) [address] [place] [address], [address], 07/12/2019 22:32:07 07/12/20 19 07/12/2019 CBC HGB 16.0 gm/dL 12.0-1 6.0 Not Available [facility] (Lab) [address] [place] [address], [address], 07/12/2019 22:32:07 07/12/2007/12/2019 CBC HCT 50.8 % 36.0-4 8.0 high Not Available [facility] (Lab) [address] [place] [address], [address], 07/12/2019 22:32:07 07/12/20 19 07/12/2019 CBC MCV 97 fL 78-98 Not Available [facility] (Lab) [address] [place] [address], [address], 07/12/2019 22:32:07 07/12/20 19 07/12/2019 CBC MCH 30.5 pg 26.0-3 4.0 Not Available [facility] (Lab) [address] [place], [address], 07/12/2019 22:32:07 07/12/20 19 07/12/2019 CBC MCHC 31.5 gm/dL 32.0-3 6.0 low Not Available [facility] (Lab) [address] [place], [address], 07/12/2019 22:32:07 07/12/20 19 07/12/2019 CBC RDW 12.4 % 11.5-1 4.5 Not Available [facility] (Lab) [address] [place], [address], 07/12/2019 22:32:07 07/12/20 19 07/12/2019 CBC platelet 163 x1000 /mm3 150-50 0 Not Available [facility] (Lab) [address] [place], [address], 07/12/2019 22:32:07 07/12/2007/12/2019 HbA1c (hemo globi n A1c), blood HGB A1C 5.3 % 4.5-6. 0 Testi ng Perfo rmed at [facility], [address] [facility] Not Available [facility] (Lab) [address] [place], [address], 07/12/2019 22:39:31 07/12/2007/12/2019 HbA1c (hemo globi n A1c), blood estimated average glucose 105 mg/dL Not Available [facility] (Lab) [address] [place], [address], 07/12/2019 22:39:31 07/12/2007/13/2019 T4, free, serum T4 free 1.29 NG/dL 0.70-1 .80 Not Available [facility] (Lab) [address] [place], [address], 07/13/2019 03:28:23 07/12/20 19 07/13/2019 vitam in D, 25-hy droxy , total , serum vitamind 25-hyd 42.4 NG/mL 20.0-5 0.0 Vitam in D Statu s Range Defic iency <20 ng/mL Insuf ficie ncy 20 - 30 ng/mL Suffi cienc y 31 - 100 ng/mL Toxic ity >100 ng/mL Not Available [facility] (Lab) [address] [place] [address], [address], 07/13/2019 03:28:24 07/12/20 19 07/13/2019 CMP, serum or plasm a albumin 4.4 gm/dL 3.5-5. 0 Not Available [facility] (Lab) [address] [place] [address], [address], 07/13/2019 03:28:29 07/12/20 19 07/13/2019 CMP, serum or plasm a calcium, serum 9.3 mg/dL 8.7-10 .4 Not Available [facility] (Lab) [address] [place] [address], [address], 07/13/2019 03:28:29 07/12/2007/13/2019 CMP, serum or plasm a T. protein 6.4 gm/dL 6.4-8. 3 Not Available [facility] (Lab) [address] [place] [address], [address], 07/13/2019 03:28:29 07/12/2007/13/2019 CMP, serum or plasm a glucose level 80 mg/dL 74-106 Not Available [facility] (Lab) [address] [place], [address], 07/13/2019 03:28:29 07/12/20 19 07/13/2019 CMP, serum or plasm a BUN 16 mg/dL 6-20 Not Available [facility] (Lab) [address] [place], [address], 07/13/2019 03:28:29 07/12/2007/13/2019 CMP, serum or plasm a creatinine level 0.8 mg/dL 0.5-1. 2 Not Available [facility] (Lab) [address] [place] [address], [address], 07/13/2019 03:28:29 07/12/2007/13/2019 CMP, serum or plasm a bili total 0.6 mg/dL 0.2-1. 2 Not Available [facility] (Lab) [address] [place] [address], [address], 07/13/2019 03:28:29 07/12/2007/13/2019 CMP, serum or plasm a alk phos 74 U/L 41-121 Not Available [facility] (Lab) [address] [place], [address], 07/13/2019 03:28:29 07/12/2007/13/2019 CMP, serum or plasm a AST 39 U/L 13-35 high Not Available [facility] (Lab) [address] [place], [address], 07/13/2019 03:28:29 07/12/2007/13/2019 CMP, serum or plasm a sodium 137 mmol/ L 136-14 5 Not Available [facility] (Lab) [address] [place], [address], 07/13/2019 03:28:29 07/12/2007/13/2019 CMP, serum or plasm a potassium 4.0 mmol/ L 3.4-5. 1 Not Available [facility] (Lab) [address] [place], [address], 07/13/2019 03:28:29 07/12/2007/13/2019 CMP, serum or plasm a chloride 100 mmol/ L 98-110 Not Available [facility] (Lab) [address] [place], [address], 07/13/2019 03:28:29 07/12/2007/13/2019 CMP, serum or plasm a CO2 26 mmol/ L 21-32 Not Available [facility] (Lab) [address] [place], [address], 07/13/2019 03:28:29 07/12/20 19 07/13/2019 CMP, serum or plasm a agap 11.0 Not Available [facility] (Lab) [address] [place], [address], 07/13/2019 03:28:29 07/12/2007/13/2019 CMP, serum or plasm a ALT 52 U/L 7-35 high Not Available [facility] (Lab) [address] [place], [address], 07/13/2019 03:28:29 07/12/20 19 07/13/2019 CMP, serum or plasm a glomerular filtration rate (MDRD) 72 mL/mi n/1.7 3_m2 The GFR is calcu lated using the MDRD formu la and is valid for adult s over 18 yea rs with adjus tment s for age, sex, and race. The calcu latio n is not valid for pa tient s on dialy sis or with rapid ly winchester ing kidne y funct ion. Patie nts with GFR less than 60 are defin ed as havin g chron ic kidne y disea se. A gradi ng syste m o f decre ased kidne y funct ion has been propo sed: 90 - 60 mild, 59 -30 moder ate, 29 -15 sever e. Not Available [facility] (Lab) [address] [place], [address], 07/13/2019 03:28:29 07/12/2007/13/2019 TSH, serum or plasm a TSH 1.26 uIU/m L 0.35-5 .50 Not Available [facility] (Lab) [address] [place], [address], 07/13/2019 03:28:27 07/12/20 19 07/13/2019 lipid panel , serum cholesterol 331 mg/dL <=200 high Not Available [facility] (Lab) [address] [place] [address], [address], 07/13/2019 03:28:32 07/12/20 19 07/13/2019 lipid panel , serum triglyceride 167 mg/dL <=200 Not Available [facility] (Lab) [address] [place] [address], [address], 07/13/2019 03:28:32 07/12/20 19 07/13/2019 lipid panel , serum HDL 78 mg/dL 34-91 Not Available [facility] (Lab) [address] [place] [address], [address], 07/13/2019 03:28:32 07/12/20 19 07/13/2019 lipid panel , serum LDL 220 mg/dL 60-130 high The equat ion being used in this calcu latio n is LDL=C HOLES TEROL -(HDL +(TRI GLYDE RID E/5)) Not Available [facility] (Lab) [address] [place] [address], [address], 07/13/2019 03:28:32 07/12/2007/13/2019 lipid panel , serum cholesterol/ HDL ratio 4.2 AXEL STERO L/HDL INTER PRETA TION: <4.0 = DECRE ASED CORON RUPA RISK 4.1-5 .9 = AVERA GE CORON RUPA RISK >6.0 = INCRE ASED CORON RUPA RISK Not Available [facility] (Lab) [address] [place], [address], 07/13/2019 03:28:32 07/25/20 19 07/25/2019 lipid panel , serum cholesterol 316 mg/dL <=200 high Not Available [facility] (Lab) [address] [place], [address], 07/25/2019 15:49:14 07/25/20 19 07/25/2019 lipid panel , serum triglyceride 176 mg/dL <=200 Not Available [facility] (Lab) [address] [place], [address], 07/25/2019 15:49:14 07/25/20 19 07/25/2019 lipid panel , serum HDL 79 mg/dL 34-91 Not Available [facility] (Lab) [address] [place], [address], 07/25/2019 15:49:14 07/25/20 19 07/25/2019 lipid panel , serum LDL 202 mg/dL 60-130 high The equat ion being used in this calcu latio n is LDL=C HOLES TEROL -(HDL +(TRI GLYDE RID E/5)) Not Available [facility] (Lab) [address] [place], [address], 07/25/2019 15:49:14 07/25/2007/25/2019 lipid panel , serum cholesterol/ HDL ratio 4.0 AXEL STERO L/HDL INTER PRETA TION: <4.0 = DECRE ASED CORON RUPA RISK 4.1-5 .9 = AVERA GE CORON RUPA RISK >6.0 = INCRE ASED CORON RUPA RISK Not Available [facility] (Lab) [address] [place], [address], 07/25/2019 15:49:14 07/25/2007/25/2019 CT, coron rupa calci um score PROCED URE: CARDIA C CT FOR LEDEZMA RY ARTERY CALCIU M SHARON G TECHNI QUE: Multi- detect or comput ed tomogr aphy of the heart was perfor med during suspen ded respir ation, and withou t the admini strati on of contra st materi al. Post-p rocess ing was perfor med on a workst ation to measur e the amount of ledezma ry vascul ar calciu m. Techni ques to minimi ze radiat ion exposu re, such as automa todd exposu re contro l, adjust ment of mA and/or kV accord ing to patien t size, or iterat bridget recons tructi on, are utiliz ed, when approp riate, to reduce radiat ion dose to as low as reason ably achiev able. CPT G9637, 88374 HISTOR Y: . Z82.49 Family hx of ischem heart dis and oth dis of the circ sys, Z13.6 COMPAR BRIDGET: None RESULT S: Thorax : No signif icant abnorm alitie s identi fied in the lungs or medias tinum. Note that the CT examin ation is limite d to the heart and the adjace nt lung and medias tinum. CALCIU M SCORIN G: Left main ledezma ry artery (LMCA) : 7.15 Left anteri or descen ding artery (LAD): 0 Circum flex artery : 0 Right ledezma ry artery (RCA): 0 TOTAL AGATST ON SCORE: 7.15 IMPRES ROSIO: 1. The probab ility of a nonzer o score in a person of the same age, sex, and race/e thnici ty is 43 percen t (TAYLOR) . 2. The above- stated Agatst on score is at percen tile 62 for subjec ts of the same age, gender , and race/e thnici ty who are free of clinic al cardio vascul ar diseas e and treate d diabet es. This indica gaurav that 38 percen t of indivi duals of the same age, sex, and race/e thnici ty will have the same or higher score. Calciu m Score Interp retati ons (Agats ton Score) : 0 (zero) : No identi fiable athero sclero tic plaque . Very low cardio vascul ar diseas e risk. Less than 5 percen t chance of presen ce of ledezma ry artery diseas e (CAD). A negati ve examin ation. 1-10: Minima l plaque burden . Signif icant CAD very unlike ly. 11-100 : Mild plaque burden . Likely mild or minima l ledezma ry stenos is (obstr uction ). 101-40 0: Modera te plaque burden . Modera te non-ob struct bridget CAD highly likely . Over 400: Extens bridget plaque burden . High likeli davies (great er than 90 percen t) of at least one major ledezma ry vessel with a signif icant stenos is (great er than 50 percen t diamet er). Note: This examin ation is not to be consid ered a substi tute for a clinic al examin ation by a physic myesha. Ledezma ry artery calciu m sharon griffin is intend ed to be a risk assess ment test for ledezma ry artery diseas e only, and the result s of this examin ation should be taken into carefu l consid eratio n by the patien t's own physic myesha in the contex t of other factor s such as releva nt histor y, physic al examin ation, and other indica todd or relate d invest igatio ns. ws:PNS TNRDWI N7CAC2 Electr onical ly Signed By Francis Montero on 2018-08 09:47 CTZ [email or web address] [facility] [place] [address], [place], [address], 08/01/2019 12:03:28 08/15/20 19 07/25/2019 MAMMO , scree radha, digit al, bilat eral, w/ CAD PROCED URE: BILATE RAL SCREEN ING MAMMOG SELAM WITH CAD TECHNI QUE: Bilate ral digita l cranio caudal and mediol ateral obliqu e screen ing mammog selam were obtain ed. The images were evalua todd with comput er-aid ed detect ion. CPT 22054, 7025F HISTOR Y: 63 years- old Female presen ts for routin e screen ing, Z12.3. . screen ing Z12.[address] for oth screen ing for malign ant neopla sm of breast . COMPAR ISONS: February 03, 2012; February 05, 2011; November 03, 2008. FINDIN GS: Compos ition: The breast s are hetero geneou sly dense, which may obscur e small masses . Hetero geneou sly dense parenc hymal patter n again noted which decrea ses sensit ivity but the overal l appear ance is not signif icantl y change d. No new or domina nt mass or suspic ious microc alcifi cation s. Few benign calcif icatio ns presen t. IMPRES ROSIO: No radiog raphic eviden ce of signif icant change or malign alcides. If physic al exam is normal , a routin e follow up mammog avis is recomm ended. Cerner :2AA ACR Catego ry: BI-RAD S 2, Benign findin g(s). CPT 3342F Recomm endati on: Screen ing mammog heide A. A negati ve x-ray report should not delay biopsy if a clinic ally suspic ious mass is presen t. B. To comply with the Federa l Mammog heide Qualit y Standa rds Act, we ask that you share with us any biopsy or surgic al outcom e data. All inform ation will be held in the strict est confid ence. ws:PNS TNRDWI N7CAC2 Electr onical ly Signed By BRYCE VELAZQUEZ on 2018-08 08:06 CTZ [email or web address] [facility] - [address], [place], [address], 08/15/2019 14:24:24 Result Notes None recorded. Problems Name Problem SNOMED Code Status Onset Date Resolution Date Notes Provider Name and Address Organization Details Recorded Time Persistent insomnia 878145805 Completed 201710/25/2017 Mason Caputo II, MD [address] [place] [address], [place], [address] , [place] - [facility] [place] 8 17:08:04 Insomnia 373198813 Active 2017 Not Available [facility] 1 08:24:59 Atypical facial pain 90605934 Active 2017 Not Available [facility] 1 08:24:59 Chondritis Active 2017 Not Available [facility] 1 08:24:59 Chronic pain 30756710 Active 2018 Not Available [facility] 1 08:24:59 Rosacea 666331916 Active Not Available [facility] 1 08:24:59 Posterior vitreous detachment 240450647 Active 2017 Not Available [facility] 1 08:24:59 Myofascial pain 890807010 Active 2018 Not Available On license of [facility] 1 08:24:59 Epiretinal membrane 831947678 Active 2018 Not Available On license of [facility] 1 08:24:59 Pain in right arm 961400602 Active 2018 Not Available On license of [facility] 1 08:24:59 Problem Notes None recorded. Procedures Surgical History Date Name Laterality Status Provider Name and Address Organization Details Recorded Time 02/14/20 20 Osteopathic Manipulative Treatment (OMT) completed Rolanda Linares DO [address] [place] [address], [place], [address], [facility] 02/14/2020 10:07:28 10/25/19 20 Osteopathic Manipulative Treatment (OMT) completed Rolanda Linares DO [address] [place] [address], [place], [address], [facility] 10/27/2019 15:45:26 09/13/19 20 Osteopathic Manipulative Treatment (OMT) completed Rolanda Linares DO [address] [place] [address], [place], [address], [facility] 09/14/2019 22:24:51 08/29/19 20 Osteopathic Manipulative Treatment (OMT) completed Rolanda Linares DO [address] [place] [address], [place], [address], [facility] 08/29/2019 13:43:46 08/02/20 19 Osteopathic Manipulative Treatment (OMT) completed Rolanda Linares DO [address] [place] [address], [place], [address], [facility] 08/02/2019 20:01:24 08/02/20 19 Injection/Aspira tion completed Rolanda Linares DO [address] [place] [address], [place], [address], [facility] 08/02/2019 20:02:35 07/12/20 19 Osteopathic Manipulative Treatment (OMT) completed Rolanda Linares DO [address] [place] [address], [place], [address], [facility] 07/14/2019 20:42:42 07/12/20 19 Injection/Aspira tion completed Rolanda Poncekartiky DO [address] [place] [address], [place], [address], [facility] 07/14/2019 20:47:23 06/26/20 19 Osteopathic Manipulative Treatment (OMT) completed Rolanda Poncekartiky DO [address] [place] [address], [place], [address], [facility] 06/28/2019 14:54:27 06/26/20 19 Injection/Aspira tion completed Rolanda Poncekartiky DO [address] [place] [address], [place], [address], [facility] 06/26/2019 15:51:43 06/03/20 19 Osteopathic Manipulative Treatment (OMT) completed Rolanda Rosariokartiky DO [address] [place] [address], [place], [address], [facility] 06/03/2019 22:33:01 05/15/20 19 Osteopathic Manipulative Treatment (OMT) completed Rolanda Bully DO [address] [place] [address], [place], [address], [facility] 05/15/2019 17:34:41 05/01/20 19 Osteopathic Manipulative Treatment (OMT) completed Rolanda Mly DO [address] [place] [address], [place], [address], [place] [facility] 05/05/2019 13:58:39 04/17/20 19 Osteopathic Manipulative Treatment (OMT) completed Rolanda Bully DO [address] [place] [address], [place], [address], [place] [facility] 04/28/2019 20:38:28 08/21/19 04 Unlisted px foot/toes completed Kait Espinoza [place] - [facility] 07/26/2017 18:57:57 08/21/19 02 Breast Surgery completed Mason Caputo II, MD [address] [place] [address], [place], [address], [place] [facility] 12/14/2017 19:48:51 08/21/18 93 Elbow Surgery completed Kait Espinoza [place] - [facility] 07/26/2017 18:58:45 08/21/18 91 Unlisted procedure lips completed Kait Espinoza [place] - [facility] 07/26/2017 18:57:16 08/21/18 90 Hysterectomy completed Kait Espinoza [place] - [facility] 07/26/2017 18:56:54 08/21/18 79 Tubal Ligation completed Kait Espinoza [place] - [facility] 07/26/2017 18:58:13 Imaging Results Imaging Date Name Status LastModified by Organiz ation Details LastModified Time 07/25/2019 CT, coronary calcium score completed [email or web address] [facility] - [address], [place], [address], 08/01/2019 12:03:28 07/25/2019 MAMMO, screening, digital, bilateral, w/ CAD completed [facility] - [address], [place], [address], 08/15/2019 14:24:24 Procedure Notes None recorded. Medical Equipment None Reported. Allergies Allergen ID Allergen Name Allergen Category Reaction Reaction Severity Criticality Documentation Date Start Date Code Code System Note Provider Name and Address Organization Details Recorded Time 573598 Cymbalta medicatio n chest pain Not available Not available 07/26/2017 42206 4 RxNorm Kait llanes, [place] - [facility] 7 18:47:12 772813 methylpre dnisolone medicatio n bradycard ia Not available Not available 07/26/2017 6902 RxNorm Kait Espinoza null, [place] - [facility] 7 18:48:15 869133 clonidine medicatio n Not available Not available Not available 07/26/20172017 2599 RxNorm Jacqualyn Avila null, [place] - [facility] 9 14:09:10 669469 naproxen medicatio n Not available Not available Not available 07/26/20172017 7258 RxNorm Carmina Avila null, [place] - [facility] [place] 9 14:09:10 455090 tramadol medicatio n Not available Not available Not available 07/26/2017 73827 RxNorm Kait Espinoza null, [place] - [facility] [place] 7 18:48:59 035194 Ultracet medicatio n insomnia Not available Not available 07/26/2017 [id number] RxNorm Kait Espinoza null, [place] - [facility] [place] 7 18:49:10 [id number] acetamino phen / hydrocodo ne medicatio n hallucina tions Not available Not available 07/26/2017 [id number] 2 RxNorm Kait [place] - [facility] [place] 7 18:50:04 587003 morphine medicatio n Not available Not available Not available 07/26/20172017 7052 RxNorm Carmina Avila null[place] - [facility] [place] 9 14:09:10 [id number] Lyrica medicatio n bradycard ia Not available Not available 07/26/2017 66131 1 RxNorm Kait [place] - [facility] [place] 7 18:51:30 [id number] Topamax medicatio n headache Not available Not available 07/26/2017 53977 3 RxNorm Kait [place] - [facility] [place] 7 18:51:58 [id number] Elavil medicatio n bradycard ia Not available Not available 07/26/2017 19077 RxNorm Kait [place] - [facility] [place] 7 18:52:54 [id number] gabapenti n medicatio n Not available Not available Not available 07/26/20172017 70410 RxNorm Carmina Avila [place] - [facility] [place] 9 14:09:10 [id number] Trileptal medicatio n itching Not available Not available 07/26/2017 33459 0 RxNorm Kait [place] - [facility] [place] 7 18:54:55 [id number] minocycli ne medicatio n dizziness Not available Not available 07/26/2017 6980 RxNorm Kait [place] - [facility] [place] 7 19:04:21 [id number] Lunesta medicatio n Not available Not available Not available 10/25/2017 99139 4 RxNorm Kait [place] - [facility] [place] 8 16:26:12 [id number] nabumeton e medicatio n Not available Not available Not available 11/01/2018 98180 RxNorm Alfonso Zimmerman null, [place] - [facility] [place] 9 10:07:56 [id number] pregabali n medicatio n Not available Not available Not available 01/31/20192017 92454 2 RxNorm Jacqualyn [place] null[place] - [facility] [place] 9 14:09:10 [id number] amitripty line medicatio n Not available Not available Not available 01/31/20192017 704 RxNorm Tioqualyn [place] null[place] - [facility] [place] 9 14:09:10 [id number] topiramat e medicatio n Not available Not available Not available 01/31/20192017 80917 RxNorm Tioqualyn [place] null[place] - [facility] [place] 9 14:09:10 [id number] duloxetin e medicatio n Not available Not available Not available 01/31/20192017 41199 RxNorm Tioqualyn [place] null[place] - [facility] [place] 9 14:09:10 251200 oxcarbaze pine medicatio n rash mild Not available 01/31/2019 05857 RxNorm Jacqualyn [place] null[place] - [facility] [place] 9 14:09:10 [id number] zonisamid e medicatio n other Not available Not available 01/31/2019 21054 RxNorm night terro rs Carmina [place] - [facility] [place] 9 14:14:19 Medications Name Sig Start Date Stop Date Status Note LastModified by Organization Details LastModified Time Prescript ion - Renewal 07/25 completed lorazapa m Not Available Not Available Not Available methocarb daisy 500 mg tablet 04/17 completed Not Available Not Available Not Available doxycycli ne hyclate 100 mg capsule 04/17 completed Not Available Not Available Not Available sertralin e 100 mg tablet TAKE 1 TABLET DAILY active Not Available Not Available No t Available acyclovir 400 mg tablet Take 1 tablet 3 times a day by oral route as directed for 90 days. active Not Available Not Available No t Available aspirin 81 mg tablet,de layed release 81 mg by oral route. active Not Available Not Available No t Available fluticaso ne propionat e 0.005 % topical ointment active Not Available Not Available Not Available meloxicam 7.5 mg tablet 07/25 completed Not Available Not Available Not Available amoxicill in 875 mg tablet 03/22 completed Not Available Not Available Not Available lorazepam 2 mg tablet TAKE 1 TABLET BY MOUTH ONCE DAILY NEEDED FOR ANXIETY active Not Available Not Available No t Available lidocaine 5 % topical patch USE 1 PATCH EXTERNAL LY ONCE DAILY. MAY WEAR UP TO 12 HOURS IN A DAY AND THEN REMOVE active Not Available Not Available No t Available gabapenti n 300 mg capsule 07/25 completed Not Available Not Available Not Available sertralin e 25 mg tablet Take 25 mg by oral route. 01/31 completed Not Available Not Available Not Available gabapenti n 100 mg capsule 03/22 completed Not Available Not Available Not Available fluocinon federico 0.05 % topical cream APPLY TO THE AFFECTED AREA(S) BY TOPICAL ROUTE 2 TIMES PER DAY; Do not use greater than 2 weeks consecut bridget active Not Available Not Available No t Available fluticaso ne propionat e 50 mcg/actua tion nasal spray,rich pension 1 {spray} by nasal route. 10/12 completed Not Available Not Available Not Available sertralin e 50 mg tablet Take 1 tablet every day by oral route as directed for 90 days. active Not Available Not Available No t Available metronida zole 0.75 % topical gel active Not Available Not Available Not Available amoxicill in 875 mg-potass ium clavulana te 125 mg tablet active Not Available Not Available Not Available nabumeton e 500 mg tablet Take 1 tablet twice a day by oral route for 30 days. 11/01 completed Not Available Not Available Not Available Mucinex 600 mg tablet, extended release Take 1 tablet every 12 hours by oral route as needed. 10/12 completed Not Available Not Available Not Available rosuvasta tin 10 mg tablet Take 1 tablet every day by oral route for 90 days. active Not Available Not Available No t Available zonisamid e 25 mg capsule Take 1 capsule every day by oral route at bedtime. 01/31 completed Not Available Not Available Not Available eszopiclo ne 3 mg tablet Take 1 tablet every day by oral route at bedtime. 10/18 completed Not Available Not Available Not Available coenzyme Q10 200 mg capsule Take 1 capsule every day by oral route for 90 days. 2018 active Not Available Not Available Not Avai lable Metrogel 1 % topical APPLY TO THE AFFECTED AREA(S) BY TOPICAL ROUTE ONCE DAILY ; RUB IN GENTLY AND COMPLETE LY 10/18 completed Not Available Not Available Not Available aspirin 81 mg Take 1 Tablet by oral route daily 05/01 completed Not Available Not Available Not Available multivita min Take 1 Tablet by oral route daily active Not Available Not Available No t Available diclofena c 1 % topical gel 1 g by topical route. 10/12 completed Not Available Not Available Not Available Probiotic Take 1 Tablet by oral route daily active Not Available Not Available No t Available Vitals Date Recorded Body height Body mass index (BMI) Body weight Body temperature Pain severity - 0-10 verbal numeric rating [Score] - Reported Oxygen saturation Oxygen saturation in Arterial blood by Pulse oximetry Heart rate Systolic blood pressure Diastolic blood pressure Provider Name and Address Organization Details Last Updated DateTime 9 170.18 cm 21.3 kg/m2 63082.5 6 g 97.4 [degF] 2 99 % 99 % 74 /min 112 mm[Hg] 75 mm[Hg] Kim Castaneda [place] - [facility] [place] 9 15:10:54 Date Recorded Body height Pain severity - 0-10 verbal numeric rating [Score] - Reported Body temperature Oxygen saturation Oxygen saturation in Arterial blood by Pulse oximetry Heart rate Body mass index (BMI) Body weight Systolic blood pressure Diastolic blood pressure Provider Name and Address Organization Details Last Updated DateTime 0 170.18 cm 2 97.8 [degF] 99 % 99 % 69 /min 21.4 kg/m2 98777.7 2 g 108 mm[Hg] 80 mm[Hg] Kim Castaneda [facility] 0 12:41:10 Date Recorded Body height Body mass index (BMI) Body weight Heart rate Oxygen saturation Oxygen saturation in Arterial blood by Pulse oximetry Body temperature Pain severity - 0-10 verbal numeric rating [Score] - Reported Systolic blood pressure Diastolic blood pressure Provider Name and Address Organization Details Last Updated DateTime 0 170.18 cm 21.1 kg/m2 27400.9 7 g 89 /min 98 % 98 % 97.7 [degF] 3 104 mm[Hg] 72 mm[Hg] Kim Castaneda [facility] 0 15:04:06 Date Recorded Body height Body mass index (BMI) Body weight Heart rate Oxygen saturation Oxygen saturation in Arterial blood by Pulse oximetry Pain severity - 0-10 verbal numeric rating [Score] - Reported Body temperature Systolic blood pressure Diastolic blood pressure Provider Name and Address Organization Details Last Updated DateTime 0 170.18 cm 21.3 kg/m2 70373.5 6 g 62 /min 96 % 96 % 3 97.9 [degF] 118 mm[Hg] 72 mm[Hg] Kim Castaneda [facility] 0 15:06:34 Date Recorded Body height Body mass index (BMI) Body weight Body temperature Oxygen saturation Oxygen saturation in Arterial blood by Pulse oximetry Heart rate Systolic blood pressure Diastolic blood pressure Provider Name and Address Organization Details Last Updated DateTime 0 170.18 cm 22.2 kg/m2 27590.1 2 g 97.5 [degF] 98 % 98 % 81 /min 115 mm[Hg] 65 mm[Hg] Padmini Chatman [facility] 0 09:13:44 Social History Question Answer Notes LastModified by Organizat ion Details LastModified Time Tobacco Smoking Status Never Smoker Kait Espinoza null, [place] - [facility] 07/26/2017 18:23:47 What Is Your Level Of Alcohol Consumption? None Information not available 07/26/2017 What Is Your Level Of Caffeine Consumption? Occasional [email or web address] Information not available 07/26/2017 What Type Of Diet Are You Following? REGULAR [email or web address] Information n ot available 07/26/2017 Which Illicit Or Recreational Drugs Have You Used? Denies [email or web address] Information not available 07/26/2017 What Is Your Occupation? Homemaker [email or web address] Information not available 07/26/2017 Risk Stratification Score (AAFP) 2 [email or web address] Information not available 06/22/2018 Have You Had A Fever And/or Symptoms Of A Lower Respiratory Illness (cough, Difficulty Breathing, Etc)? No [email or web address] Information not available 02/14/2020 Marital Status [email or web address] Informatio n not available 07/26/2017 What Was The Date Of Your Most Recent Tobacco Screening? 12/11/2018 Information not available 03/15/2019 Seat Belts Used Routinely Yes Information not available 07/26/2017 Smoke Alarm In Home Yes Information not available 07/26/2017 Sex: Unknown Functional Status Question Answer Note LastModified by Organizat ion Details LastModified Time Are you able to walk? YESWOREST [email or web address] Information not available 10/12/2018 What is your exercise level? Moderate Excersie bike 5-7 days/wk [email or web address] Information not available 07/26/2017 Mental Status None recorded. Family History Nothing Reported. Medical History Condition Response hypothyroidism N cancer N asthma N COPD N high blood pressure N acid reflux/GERD N blood clots N diabetes mellitus N heart problems N high cholesterol N Gynecological HistoryNo gynecological history recorded. Obstetrics History GPAL:G 0 P 0 0 0 0 Immunizations Vaccine Type Date Status Note Provider Nam e and Address Organization Details Recorded Time COVID-19, mRNA, LNP-S, PF, 30 mcg/0.3 mL dose 10/24/2020 completed Mary Nichole mario alberto, [place] - [facility] 10/24/2020 11:04:26 COVID-19, mRNA, LNP-S, PF, 30 mcg/0.3 mL dose 11/14/2020 completed Tri llanes, [place] - [facility] [place] 11/14/2020 12:02:32 Past Encounters Encounter ID Performer Location Encounter Start Date Encounter Closed Date Diagnosis/Indication Diagnosis SNOMED-CT Code Diagnosis ICD10 Code Diagnosis Note [id number] Mason Caputo II, MD [facility] [address] [place] [id number] 07/26/2017 17:57:21 07/26/2017 19:08:51 Eczema 01890866 L30.9 Refilled fluocinoni de cream to use as needed for eczematous dermatitis . She understand s to not use is greater than 2 weeks consecutiv e. Depressive disorder 9076 9007 F32.9 Patient is currently utilizing sertraline 25 mg daily by taking one fourth of 100 mg tablet. I recommende d to increase her dose to 50 mg (one half tablet) daily to see how she does with this. Eventually the goal is to increase up to 100 mg. We will plan on seeing her back in 30 days to reevaluate . Rosacea 236292607 L71.9 Occasional ly has flares especially in colder weather of the winter so we will refill the MetroGel. Insomnia 820136905 G47.0 0 Use good sleep hygiene with avoidance of stimulants later in the day, heavy aerobic exercise after dinner, and avoidance of daytime or afternoon napping. Continue lorazepam for sleep prn. Do not use every night unless needed. Herpes simplex 25886859 B00.9 The patient was reluctant to discuss that she should not but she does need a refill. Since this is worked well for her the past will stick with acyclovir for now. [id number] RIN Wilson [facility] [address] [place] [id number] 10/18/2017 18:52:12 10/18/2017 19:52:02 Right flank pain 202151172 R10.9 UA with trace leuks and small blood. Will send for culture for further evaluation . DDx: MSK, nephrolith iasjudie. Discussed proceeding with imaging/bl oodwork vs. waiting on culture results - pt would like to wait for culture results. She has an appt scheduled with her PCP in 2 days - she will keep this appt for further evaluation if needed. Discussed the importance of pushing fluids. Pt voices understand ing and agrees with this plan. ER precaution s given. Epigastric pain 37693612 R10.13 Appears to be unrelated to the flank pain and moreso due to uncontroll ed acid reflux. Discussed starting medicaton but pt is unsure due to frequent medication side effects. Encouraged her to try starting with OTC Zantac - she will consider this. Discussed avoiding spicy/grea sy foods, coffee, and chocolate to help control symptoms. [id number] Mason Caputo II, MD [facility] [address] [facility] [place] [id number] 10/25/2017 16:09:16 10/25/2017 17:22:33 Right flank pain 696313096 R10.9 Need to rule out underlying kidney stone or and/or ureteral stone in transit. Will order CT scan of abdomen and pelvis without contrast. Urinalysis in office did reveal 1+ blood so we will check urinalysis with microscopnel cash. Insomnia 199907269 G47.0 0 Use good sleep hygiene with avoidance of stimulants later in the day, heavy aerobic exercise after dinner, and avoidance of daytime or afternoon napping. Continue lorazepam for sleep prn. Do not use every night unless needed. Nasal vestibulitis 92217 000 J34.89 Recommend OTC Bacitracin and hydrocorti sone ointment mixed together to use as needed. Mixed rhinitis 451582362 J31.0 Will trial fluticason e nasal spray 1 spray in each nostril daily or twice daily [id number] Mason Caputo II, MD [facility] [address] [place] [id number] 12/14/2017 16:08:29 12/14/2017 17:30:26 Insomnia 650980568 G47.00 Use good sleep hygiene with avoidance of stimulants later in the day, heavy aerobic exercise after dinner, and avoidance of daytime or afternoon napping. Continue lorazepam for sleep prn. Do not use every night unless needed. Eczema 83455434 L30.9 Use topical fluocinoni de cream as needed. Depressive disorder 3544 9006 F32.9 Continue sertraline on current dose. Rosacea 514355900 L71.9 Occasional ly has flares especially in colder weather so continue using topical MetroGel as needed. Herpes simplex 30195874 B00.9 The patient was reluctant to discuss that she should not but she does not need a refill. Adult heal th examination 042441000 Z00.00 Exercise at least 35 minutes aerobicall y daily. Recommend a colonoscop y at least once over the age of 50 and annual mammogram over the age of 40. Recommend Pneumovax for patients 65 years and over, Zostavax for 60 years and over, and Adacel every 10 years. Begin checking bone density test every 2 years beginning at age 50. Recommend 1000mg of supplement al calcium daily, Vitamin D 2000 IU unless a higher dose is recommende d. Monitor weight closely and strive to keep BMI at 27 or less. 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 [id number] Mason Caputo II, MD [facility] [address] [place] [id number] 03/22/2018 14:50:33 03/22/2018 15:39:03 Chondritis 47624481 M94.8X8 Will trial on topical diclofenac gel however may have to change to something else if this is not covered by insurance. Atypical facial pain 713 14805 G50.1 Continue follow-up with ENT regarding what sounds to be possible trigeminal neuralgia [id number] Mason Caputo II, MD [facility] [address] [place] [id number] 07/25/2018 14:25:00 07/25/2018 15:23:36 Eczema 28130615 L30.9 Use topical fluocinoni de cream as needed. Refill given Mixed rhinitis 519712069 J31.0 continue fluticason e nasal spray 1 spray in each nostril daily or twice daily Insomnia 648585882 G47.0 0 Use good sleep hygiene with avoidance of stimulants later in the day, heavy aerobic exercise after dinner, and avoidance of daytime or afternoon napping. Continue lorazepam for sleep prn. Do not use every night unless needed. Depressive disorder 5577 1830 F32.9 Patient is currently utilizing sertraline 25 mg daily by taking one fourth of 100 mg tablet. I recommende d to increase her dose to 50 mg (one half tablet) daily to see how she does with this. Eventually the goal is to increase up to 100 mg. We will plan on seeing her back in 30 days to reevaluate . Felix 119436209 L71.9 Occasional ly has flares especially in colder weather of the winter so we will refill the MetroGel. Herpes simplex 12392918 B00.9 No refills needed at this time, problem stable Upper resp iratory infection 28936533 J06.9 Patient to call back if symptoms do not improve over the next several days we will be happy to send in an antibiotic but at this time I do not feel she needs one. Would recommend symptomati c treatment with mucolytic. Myofascial pain 48603064 9 M79.10 Continue with treatments and follow-ups with the chiropract ic office she is currently visiting. [id number] Mason Caputo II, MD [facility] [address] [facility] [place] [id number] 10/12/2018 10:57:06 10/12/2018 13:00:47 Thoracic back pain 146514955 M54.6 We will try to get approved for MRI of thoracic spine since she has had these ongoing problems. Lidocaine patches prescribed also and I recommende d if insurance will not cover these to use the [employer] rudy which will make these affordable . Cervical radiculitis 110 64339 M54.12 We will try to have MRI of the cervical spine done at the same time as well as she has had right upper extremity radiculiti s. Rib pain 145234140 R07.8 1 Will check rib x-ray to make sure she does not have an underlying subacute fracture from recent vigorous massage therapy. Atypical facial pain 715 10879 G50.1 Continue follow-up with ENT regarding what sounds to be possible trigeminal neuralgia. No new recommenda tions at this time. [id number] Eugene Mcclelland MD [facility] [address] [place] [id number] 11/01/2018 09:49:24 11/01/2018 11:03:24 Dysesthesia 808532240 R20.8 *Extremely extensive comprehens bridget and complex visit today with Shanice and her Matthew. They have been 30 years, and unfortunat oliver her life has been greatly changed by these symptoms, initially present from 2005 through 2011, and then recurring in early 2018. Interestin gly, both times occurred when she was at her thinnest, initially in , and then after a 30 pound weight loss in July 2017, after wt gained post-a 2017 ankle fracture. This seemed to go away in 2011 when she had a fall with the ankle fracture requiring surgery with a plate. The dysesthesi as now are burning as well as being aching sensations . This seems both superficia l and deep in combinatio n to her. This involves the right forearm, rarely above the elbow, although the elbows are affected with pain which Aspercreme helps, and also rarely ever involving the hand. This involves primarily the periscapul ar region posteriorl y on the right side, with only some tenseness on the left side here. She has failed multiple medication s including clonidine, steroids, Cymbalta, naproxen, Ultracet, over-the-c ounter anti-infla mmatories, tramadol, Lortab, morphine, nabumetone , Lyrica, Elavil, Topamax, Trileptal, gabapentin , and has never been on zonisamide , baclofen, nor any peripheral acting muscle relaxant such as Soma, Skelaxin, Robaxin, or Flexeril. I am concerned here, as the etiology of this could be potentiall y a central thalamic process, either a stroke here, or slow-growi ng tumor like a glioma, or an expanding cyst. She needs a cranial MRI. This will be done without contrast initially. She is not claustroph obic. Also 2 weeks ago she had an extremely severe right head pain times 20 minutes, & she simply had to lie down and hold her head. She has never had this before nor since. This is further reason for cranial imaging, certainly. She also has a sensory level on the right trunk, @ T10. This needs to be assessed for cord compressio n, or intrinsic cord injury, from a cyst, disc, or cord lesion such as a tumor, etc. We are going to try this without contrast first, as she is so sensitive to most agents and medication s. If needed I discussed that we might be required to use contrast, depending upon what radiology sees, either at the time of the MR if the radiologis t is present, or she might potentiall y have to go back. I will personally contact her with results of these imaging studies. I discussed options of trying zonisamide or baclofen. I doubt peripheral muscle relaxants will help her. For the Zonegran, given her great sensitivit y I would recommend starting with just 25 mg nightly and Titrating the dosage upwards every 2 weeks as needed, to maximal dosage, as tolerated. We will discuss this after we see the scan results however. Also she does have a degree of TMJ. This may well be contributi ng to the ear pain, as below. Pain in right arm 607516 004 M79.601 The right arm pain does appear neuropathi c, while the pain in the right shoulder region appears both neuropathi c and musculoske letal, in combinatio n. He has failed multiple physical therapies, and this only seems to make her worse. Trigger point injections also did not help with her neck pain and spasms. She does some mild stretching but cannot do much activity here, as this seems to flare her up with such activities . We will defer centrally acting muscle relaxants for present for the neck pain. She has also always her entire life been very sensitive to sounds, smells, chemicals, and lights, and sensory overload affects her greatly as well. She does not appear to have fibromyalg ia; this would not have been expected to go away for 6 years, and to occur with weight loss. For 10 months she went without chewing her food, at all, due to the ears, & now chews as little as possible, and avoids foods which need to be chewed much. When it is hurting her ears as well, this is an achy feeling, without sharp stabbing pains. She had questions about possible trigeminal neuralgia but she does not have this, as disc'd. I also reviewed all of her medical records from her PCP. She uses a Lidoderm patch at times apparently without much efficacy. Cervical MRI did show mild to moderate left C5-6 foraminal narrowing but I discussed that this is the opposite side, and also that this is not causing any degree of nerve issue, and is actually common to see him her age. Again thoracic spine was refused by her insurance initially until she took 6 weeks of nabumetone . I also have a record of x-rays of the right ribs and chest, which showed no abnormalit ies. Discussed. Otalgia 52399406 H92.01 She has seen ENT x3, and a Panorex /CT showed no problems, she says. She does not also have TMJ as per two oral surgeons. However I suspect that she does have this. I discussed this with her. This is certainly not causing all of her problems but could cause the ear issues, and also could contribute to some muscle tension and pain in her shoulder region. This would not be causing her arm problem however as discussed. As below, I gave her the name of Dr. Tristan Sullivan, an excellent dentist in [facility] whom I have used with conservati ve bite adjustment techniques , which has been very helpful for many people with TMJ which is causing problems such as I suspect hers is. I disc'd at length the difference s here, why the oral maxillofac ial surgeons may not have seen this, or that this may be worse now, etc. Neverthele ss I am convinced at this point that she does indeed have TMJ on the right, no matter what they told her. I gave them Dr Sullivan's phone number as well. I am happy to make the referral for that if they would like to. We discussed the likely cause here, how he manages this conservati vely, etc. from present they want to wait until after the MRIs. Depressive disorder 1528 1809 F32.0 She has depression as well. When more depressed she had more weight on, and at her thinnest, she has had these symptoms occur/recu r, as above. Zoloft 50 mg/day for present continues and seems to be helping her depression quite well now however. Temporoman dibular joint disorder [id number] M26.609 As above. [id number] Eugene Mcclelland MD [facility] [address] [place] [address] 12/11/2018 16:13:56 12/11/2018 17:33:51 Dysesthesia [id number] R20.8 As above, her life has been greatly changed by these symptoms, initially present from 2005 through 2011, and then recurring in early 2018. Interestin gly, both times occurred when she was at her thinnest, initially in , and then after a 30 pound weight loss in July 2017, after wt gained post-a 2017 ankle fracture. This again seemed to go away in 2011 when she had a fall with the ankle fracture requiring surgery with a plate. The dysesthesi as still are burning as well as being aching sensations , both superficia l and deep in combinatio n, per her; in the right forearm, rarely above the elbow, although the elbows are affected with pain which Aspercreme helps, and also rarely ever involving the hand. This involves primarily the periscapul ar region posteriorl y on the right side, with only some tenseness on the left side here. She has failed multiple medication s including ZNS, clonidine, steroids, Cymbalta, naproxen, Ultracet, over-the-c ounter anti-infla mmatories, tramadol, Lortab, morphine, nabumetone , Lyrica, Elavil, Topamax, Trileptal, gabapentin , and has never been on zonisamide , baclofen, nor any peripheral acting muscle relaxant such as Soma, Skelaxin, Robaxin, or Flexeril. No central thalamic process [stroke here, or slow-growi ng tumor like a glioma, or an expanding cyst] wa seen on cranial MRI. No more has she had any extremely severe right head pain times 20 minutes, & she simply had to lie down and hold her head. She still also has a sensory level on the right trunk, @ T10. T- MR though showed no cord compressio n, or intrinsic cord injury, from a cyst, disc, or cord lesion such as a tumor, etc. Also she does have a degree of TMJ. This may well be contributi ng to the ear pain, as below. Pain in right arm [id number] 004 M79.601 The right arm pain still appears neuropathi c, while the pain in the right shoulder region appears both neuropathi c and musculoske letal, in combinatio n. She has failed multiple physical therapies; this only seems to make her worse. Trigger point injections also did not help with her neck pain and spasms. She does some mild stretching but cannot do much activity here, as this seems to flare her up with such activities . We will defer centrally acting muscle relaxants for present for the neck pain. She has also always her entire life been very sensitive to sounds, smells, chemicals, and lights, and sensory overload affects her greatly as well. She does not appear to have fibromyalg ia; this would not have been expected to go away for 6 years, and to occur with weight loss. For 10 months she went without chewing her food, at all, due to the ears, & now chews as little as possible, and avoids foods which need to be chewed much. When it is hurting her ears as well, this is an achy feeling, without sharp stabbing pains. She had questions about possible trigeminal neuralgia but she does not have this, I feel. Cervical MRI did show mild to moderate left C5-6 foraminal narrowing but I discussed that this is the opposite side, and also that this is not causing any degree of nerve issue, and is actually common to see him her age. Otalgia [id number] H92.[address] Sullivan yet; they want to focus on the other issues first. Once again, she has seen ENT x3, and a Panorex /CT showed no problems, she says. She does not also have TMJ as per two oral surgeons. However I still suspect that she does have this. This is certainly not causing all of her problems but could cause the ear issues, and also could contribute to some muscle tension and pain in her shoulder region. This would not be causing her arm problem however as discussed. Depressive disorder 6438 4241 F32.0 She has depression as well. When more depressed she had more weight on, and at her thinnest, she has had these symptoms occur/recu r, as above. Zoloft 50 mg/day for present continues and seems to be helping her depression quite well now however. 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 Complex re gional pain syndrome 611676969 M89.00 *55-minute visit today with Sil[facility]. They come in with many, many questions. Unfortunat oliver, the zonisamide made her face itch, nearly immediatel y. Lidocaine patches are still being apparently approved, pending approval at least. The facial itching was gone by 2 days off the Zonegran. I discussed that there are no other oral meds which I feel I can give her that have a good success chance, with low side effect risk, concurrent ly. She has tried so many others that of twork in cases with her symptom, failed all, & and she is so sensitive that I cannot simply throw agents at her that are not likely to help. They came in today to discuss this further, after we had mentioned over the phone her seeing pain management . They saw Dr. Malave previously and did not have a good experience with him, they say. I discussed seeing Dr. Willem Valdes, whom I have worked with for many years, to see if she may need injections , or other concerns they brought up were ablations, etc. This would ultimately be his decision, but I disc'd that I highly value his input. 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 This is affecting the right arm again, mainly in the forearm area, and in particular the right periscapul ar region. This began after she had some moles taken off, but then had a excellent time with no symptoms for many years, again, as below. I doubt these mole removals contribute d, as disc'd. She is concerned about her MRI of the brain. She brings in this report today. We discussed this via telephone, but now they are looking up the terms here, and want to know definition s. To my review this shows mild aging/vasc ular changes only, not the atypical MS the radiologis t mentioned as a possibilit y. The largest lesion is very peripheral in the right frontal lobe, at still just 8 mm. This is also at the kramer-white junction, and the other rare zones of increased FLAIR and T2 signal are punctate, appropriat e for age, and not in the appropriat e zones for MS. Additional ly I discussed that her corpus callosum and brainstem are normal as well, on my personal review of these images. She does not have MS by history nor clinical examinatio n either, as reviewed. She was reassured. She failed trigger points in the past. She would like further diagnostic tests. I do not feel EMG/NCS repeat is necessary. She did have this previously . I discussed that to look further for MS we could do CSF testing, but I do not feel this is necessary and she also defers this therefore. Further, I discussed possibly a bone scan. This if abnormal would be consistent , with reduced uptake or other appropriat e patterns, for reflex sympatheti c dystrophy. If normal this does not completely rule it out, but if positive would give us evidence towards this, so they would like to do this first. I discussed that my next recommenda tion would be to see pain management , but the recommenda tions there will depend upon the results, that is I discussed a stellate ganglion block, i.e. a sympatheti c blockade, if this is likely to be a complex regional pain syndrome, even though this is relatively late since recurrence . Otherwise there are questions about ablations, repeat trigger points, etc., which could certainly be authoritat ively discussed by Dr. Valdes. We will plan to see her back as needed but I will contact her personally with the results of the bone scan. [id number] Mason Caputo II, MD [facility] [address] [place] [address] 01/31/2019 14:03:06 01/31/2019 15:34:08 Neck pain 38234915 M54.2 Unsure the exact cause of her pain, but I reassured her I do not feel that is originatin g from the thyroid. Furthermor e I stated to her that you can have thyroid nodules and never have any symptoms which is what most people typically do. We will check a thyroid ultrasound and also soft tissue of the neck but I feel that her symptoms are likely nerve related. She has been very sensitive to most medication s that have been offered so we did not offer any new medication s today. Chronic pain 25886636 G8 9.29 Will be transition ing to see pain management /intervent ional pain management with Seth at [address] in the next week. Atypical facial pain 713 43273 G50.1 Continue follow-up with ENT regarding what sounds to be possible trigeminal neuralgia. No new recommenda tions at this time. [id number] Rolanda Linares DO [facility] [address] [place] [address] 04/17/2019 09:55:12 04/17/2019 11:18:58 Thoracic back pain 765060932 M54.6 Right sided thoracic pain affecting rhomboids/ teres minor seem to radiate to posterior cervical spine and trapezius. Continue use of ice near shoulder cannot do direct contact. Typical medication combinatio ns have been unsuccessf ul for patient has intolerant to these medication s including sensation, smell, additional adverse side effect. Advised patient to try otc homeopathi c natural anti-infla mmatory Arnica gel to affected area. Continue activities as tolerated. Somatic dysfunction 4713 5001 M99.02 M99.03 M99.04 M99.08 Patient was very tender to palpation. Tolerated OMT well, experience d some soreness as discussed ahead of time. Review goals of OMT, to reduce pain hopefully by 50-70%. This m/l will not provide overall resolution or an answer to her pain. Some inc rom of thoracic spine. Continues to have tender areas in teres minor and rhomboid. Pt very concerned with treatment plan, as poor experience with trigger points in the past. RTC in 2-12 weeks for another OMT treatment. Increase water intake to reduce possible soreness in the next 24-72 hours. Consider possible dry needling with OMT in the future. Pt and in agreement with plan. [id number] Rolanda Linares DO [facility] [address] [place] [address] 05/01/2019 14:54:47 05/01/2019 16:17:17 Thoracic back pain [id number] M54.6 Review of previous imaging, non contributo ry to patient's right sided shoulder and upper back/ forearm pain. Possible late onset atypical present of CRPS, per neurology. Cont ice PRN. Intolerant of several medication s. Consider alt PT in the future. Pt reports PT in the past was not helpful. I think focusing on posture and biomechani cs would be rather beneficial .Spent 50 minutes with patient and at today's visit, of which more than 50% of this time was spent face to face obtaining additional history, discussing today's plan, goals and future plan of care. Somatic dysfunction 3938 4951 M99.02 M99.08 M99.00 M99.01 M99.07 Right thoracic and shoulder pain with radiation of pain to ear and forearm described as burning. Patient felt some improvemen t when she was able to relax and allow procedure to occur. If patient does not benefit over the next 1 or 2 treatments consider referral to Dr. Galarza at [place], for whole-body cranial treatment. Patient was intolerant of Arnica gel as well as additional other topical medication s. Patient to continue practice on exercises for neck range of motion to do daily household activities and ADLs as tolerated patient advised not to reach or overstretc h as this could cause worsening tension. Patient advised to drink excess water and ice affected areas. Reminded both patient and that patient may never be 100% back to normal but the goal is to improve pain and range of motion to about 50% or more if able to. [id number] Rloanda Linares DO [facility] [address] [facility] [place] [address] 05/15/2019 10:01:45 05/15/2019 11:07:25 Thoracic back pain [id number] M54.6 Advised to take motrin 400 mg TID x 3 days to help red soreness. Apply ice near shoulder as unable to tolerate directly on shoulder, but also consider cold cloth directly on affected area. Cont ADLs and mild stretching as tolerated. Recommende d walking. At this time I do not think it is appropriat e to treat her pain chronicall y with acyclovir. Does not seem to have in dermatomal pattern, denies previous shingles. Recommende d to ask pcp in the future. Today I spent 60 minutes with patient and > 50% was spent face to face discussing possible causes for chronic pain, potential treatments and plan. Somatic dysfunction 4713 5001 M99.02 M99.08 M99.01 M99.07 In depth discussion about my concern that last OMT resulted in new and different pain in right shoulder. During her first and second treatments I explained how if treatment was painful that I needed to stop treatment to modify plan without pain. and seemed confused as they thought the adage no pain no gain was applicable to OMT. Before treatment today advised again that pain is not appropriat e, but mild soreness was ok. Reinforced that OMT may not be the best approach, but if still wanted to seek treatment cranial method via Dr. Galarza would be best. Additional ly pt did seem to tolerate treatment well today, and at the end of treatment felt improvemen t in rom of right shoulder, right clavicle and b/l ribs, slight inc in rom of cervical spine. RTC in 3 weeks. [id number] Roalnda Linares DO [facility] [address] [facility] [place] [address] 06/03/2019 14:58:10 06/03/2019 15:59:03 Thoracic back pain 378721041 M54.6 pt has responded well since last treatment. Starting to have some good days. Denies having numbness and tingling in b/l hands. Cont to have sensitive cold burn in right forearm. Cont with add OMT apts since making improvemen ts and responding . Somatic dysfunction 4713 5001 M99.02 M99.08 M99.01 M99.07 M99.03 Tolerating OMT well today, denies pain during tx today or after last tx. Improved ROM of cervical spine. Inc water intake, take motrin tonight and tomorrow 400 mg TID if needed. RTC in 2-4 weeks for add tx. Influenza vaccination declined [id number] Z28.21 review of risks and benefits today, declined. [id number] Rolanda Linares DO [facility] [address] [facility] [place] [address] 06/26/2019 14:54:26 06/26/2019 15:50:21 Thoracic back pain 199656807 M54.6 Post treatment today able to right and left further than she has months able to see behind her. Right rhomboid decreased hypertonic ity and right serratus improve. Patient no longer Somatic dysfunction 4713 5001 M99.02 M99.08 M99.01 M99.07 Tolerating OMT well today, denies pain during tx today or after last tx. Improved ROM of cervical & thoracic spine. Tolerated dry needling well of left trapezius. Inc water intake, take motrin tonight and tomorrow 400 mg TID if needed. RTC in 2-4 weeks for additional tx. [id number] Rolanda [facility] DO [facility] [address] [facility] [place] [address] 07/12/2019 12:33:57 07/12/2019 13:44:24 Myofascial pain 935975342 M79.10 mostly affecting RUE. Pt still unable to wear long sleeves or jackets. Thoracic back pain 44051 8004 M54.6 tolerated b/l trapezius and rhomboid dry needling. Fascial planes improving, less restrictio n. Somatic dysfunction 4713 5001 M99.02 M99.08 M99.01 M99.07 Patient tolerated OMT well. Over all improvemen t after treatment and decreased pain and increased ROM. RTC in 2-4 weeks for another OMT treatment. Increase water intake to reduce possible soreness in the next 24-72 hours. [id number] Mason Caputo II, MD [facility] [address] [facility] [address] 07/25/2019 08:16:56 07/25/2019 16:27:44 Herpes simplex 10467419 B00.9 No refills needed at this time, problem stable Depressive disorder 3548 9007 F32.9 Patient is currently utilizing sertraline 25 mg daily by taking one fourth of 100 mg tablet. I recommende d to increase her dose to 50 mg (one half tablet) daily to see how she does with this. Eventually the goal is to increase up to 100 mg. We will plan on seeing her back in 30 days to reevaluate . Insomnia 749523434 G47.0 0 Use good sleep hygiene with avoidance of stimulants later in the day, heavy aerobic exercise after dinner, and avoidance of daytime or afternoon napping. Continue lorazepam for sleep prn. Do not use every night unless needed. Eczema 65810003 L30.9 Use topical fluocinoni de cream as needed. Refill given Adult heal th examination 449272673 Z00.00 Z00.01 Mixed hyperlipidemia 267 289722 E78.2 Patient desired to repeat this today but we will do so but I feel that she would definitely need to have treatment. Family his tory of Cardiovascular disease 485603210 Z82.49 Recommende d based on her very high cholestero l level and family history of questionab le premature cardiovasc ular disease will get CT calcium score to better decide on treatment measures. And aggressive ness that needs to be undertaken . Pain in right arm 607205 004 M79.601 Continue follow-up with Dr. Linares. [id number] Rolanda Linares DO [facility] [address] [facility] [place] [address] 08/02/2019 14:58:21 08/06/2019 17:59:07 Myofascial pain 312882092 M79.10 Right upper extremity mostly affected still unable to wear jackets and long sleeves. Increase range of motion decrease pain. Thoracic back pain 65705 8004 M54.6 Well-denzel ated left trapezius dry needling. Patient is showing great improvemen t. She is now able to do some things that she has not done in over a year. Review of neck stretches continue to do these daily. Somatic dysfunction 3879 5001 M99.02 M99.08 M99.01 M99.07 Patient tolerated OMT well. Over all improvemen t after treatment and decreased pain and increased ROM. RTC in 2 weeks for another OMT treatment. Increase water intake to reduce possible soreness in the next 24-72 hours. [id number] Rolanda Linares DO [facility] [address] [place] [address] 08/29/2019 12:32:45 08/29/2019 13:22:01 Myofascial pain 662246849 M79.10 left shoulder pain hypertonic ity improving, still about 1/4 ' higher than right. Her Right Rhomboid and thoracic pain is greatly improved, Inc rotation of cervical and thoracic spine. Thoracic back pain 91188 8004 M54.6 as above. Advised to cont trying different activites that she used to enjoy and cleaning etc. Less recovery time between over doing it . Notes that friends think she is more like herself again, happier. Cont stretching . Somatic dysfunction 6035 5001 M99.02 M99.08 M99.01 M99.07 Patient tolerated OMT well. Over all improvemen t after treatment and decreased pain and increased ROM. RTC in 2 weeks for another OMT treatment. Increase water intake to reduce possible soreness in the next 24-72 hours. [id number] Rolanda Linares DO [facility] [address] [place] [address] 09/13/2019 14:55:45 09/13/2019 15:48:55 Myofascial pain 432586796 M79.10 Superficia l burning sensation of right forearm improving, flareups are shorter duration. Patient has greater mobility of thoracic and cervical spine. Still has shoulder on leveling left greater than right. Right clavicle decreased protrusion anteriorly . Cervical rotation slightly limited looking over her right shoulder. Thoracic back pain 06915 8004 M54.6 Improving, initial evaluation had minimal winging of right present. Shoulders are more mobile. Continue posture exercises hold for minimum 30 seconds work up to 10. Advised patient to pick 1 activity to do each day in order to prevent flareups. Somatic dysfunction 4788 5001 M99.02 M99.08 M99.01 M99.07 Patient tolerated OMT well. Over all improvemen t after treatment and decreased pain and increased ROM. RTC in 2 weeks for another OMT treatment. Increase water intake to reduce possible soreness in the next 24-72 hours. [id number] Rolanda Linares DO [facility] [address] [place] [address] 10/25/2019 15:00:11 10/25/2019 15:43:37 Myofascial pain 801734704 M79.10 persistant left hypertonig trapzeius/ posterior scalene. Left shoulder higher with cervical right rotation. Improving. Not as fatigued, inc more ADLs. Less frequent flare ups and less severity. Thoracic back pain 51701 8004 M54.6 cont HEP neck stretches/ upper back. Start to add resistance with stretches to make ME. Somatic dysfunction 5419 5001 M99.02 M99.08 M99.01 M99.07 Patient tolerated OMT well. Over all improvemen t after treatment and decreased pain and increased ROM. RTC in 2 weeks for another OMT treatment. Increase water intake to reduce possible soreness in the next 24-72 hours. [id number] Rolanda Linares DO [facility] [address] [place] [address] 02/14/2020 09:08:13 02/14/2020 09:57:06 Myofascial pain 921771241 M79.10 Has been doing well with bath soaks, stretches and HEP. First tx since Aug 2019. Feels that she is doing well over all. Had inc pain d/t lifting and caring for her mother on hospice. Thoracic back pain 53419 8004 M54.6 left> right. Improvemen t with ROM. right clavicular head still slightly anterior and left trapezius/ shoulder slightly elevated. Somatic dysfunction 4713 5001 M99.02 M99.08 M99.07 Patient tolerated OMT well. Over all improvemen t after treatment and decreased pain and increased ROM. RTC in prn. Health Concerns Section Related Observation LastModified by Organization Detai ls LastModified Time None Recorded Concern Status LastModified by Organization Details LastModified Time None Recorded Advance Directives Directive None Recorded Payers Encounter Date Sequence Insurance Name Policy Number Policy Perez Covered Member ID Perez Member ID Guarantor Name 08/02/2019 1 [employer] [id number] Shanice Velazquez MEBVLZWZ MEBVLZWZ Shanice Velazquez 08/29/2019 1 [employer] [id number] Shanice Velazquez MEBVLZWZ MEBVLZWZ Shanice Velazquez 09/13/2019 1 [employer] [id number] Shanice Velazquez MEBVLZWZ MEBVLZWZ Shanice Velazquez 10/25/2019 1 [employer] [id number] Shanice Velazquez MEBVLZWZ MEBVLZWZ Shanice Velazquez 02/14/2020 1 [employer] [id number] Shanice Velazquez MEBVLZWZ MEBVLZWZ Shanice Velazquez Notes Date Note Type Note Provider Name and Address Organization Details Recorded Time 08/02/2019 text/html Pt is a 63-year-old female with past medical history significant for insomnia and chronic right shoulder, neck, upper back and facial pain who presents today for follow up OMT visit. As last visit patient has started to do more around the house. She notes that she is able to do some laundry has reorganized 2 areas in her house that she has not done in over a year. Patient does not feel like she is ready to drive yet. Noting increased range of motion in her arms and neck. 1 of her goals was to be able to bake [employer] cookies like she used to. Today she helped minimally assist her friend and baking cookies. Denies soreness today from partaking in this. Overall patient's pain has been consistently decreased over the last 2 weeks since last visit. Continues to still have numbness in forearm. Patient also was able to eat hamburger for the first time with chewing on the right side of her mouth denied pain with this like normally referred to her right shoulder. Rolanda Linares [address] [place] [address] [address], [place], [address], [facility] 08/02/2019 20:06:35 08/29/2019 text/html Pt is a 63-year-old female with past medical history significant for insomnia and chronic right shoulder, neck, upper back and facial pain who presents today for follow up OMT visit. She was able to bake brownies for chris. Did feel sore after making one type of cookies. One day did excessive stretching, only took the following day to recover. Able to shake car mats out. Did one scrap book and made one card without pain, has not done in the last 2 years. Ate chicken filet sandwich without pain in jaw radiating to neck in over 1 year. new plush fleece jackets, able to tolerate on right forearm without inc burning sensation. Pain is not as intense in the last few days, not hours like before. Sees as progressing small steps. Able to turn neck to see behind. But does force some. Rolanda Poncekartikkobi [address] [facility] [address], [place], [address], [facility] 09/04/2019 08:37:37 09/13/2019 text/html Pt is a 63-year-old female with past medical history significant for insomnia and chronic right shoulder, neck, upper back and facial pain who presents today for follow up OMT visit. Patient is continuing to progress. Admits that she has been trying to do more, and the following day feels soreness. Previously she would be several days to week stuck in pain with decreased range of motion. Patient is now able to go out to dinner, go shopping for an hour, start laundry, minimal cooking. When cooking tried to use the oven with heavy cookware, admits that right arm pain became worse with shooting pain, resolved the next day. Today thoracic back pain on the right is a 3 out of 10, left PZ is is 4 out of 10. Has noticed that her shoulder asymmetry continues to improve when she looks back at old pictures. Rolanda Linares DO [address] [place] [address] [address], [place], [address], [facility] 09/14/2019 22:28:13 10/25/2019 text/html PT is a 64 yo female with past medical history significant for insomnia and chronic right shoulder, neck, upper back and facial pain who presents today for follow up OMT visit. Has been progressing well. ABle to do more Adls for longer. Food prepping but not cooking yet. Has starting some crafts but able to do short periods of time. Shopping for longer. Cont to do daily neck stretches. Warm baths. Still having burning sensation of right arms near elbow, but less often. She did fall 1.5 weeks ago. In the middle of the night getting up to the bathroom. Having right hip pain and left chest/rib / clavicle pain. Today right thoracic back pain is a 2/10, left shoulder/trapezius pain 2/10. B/l rib pain from fall 3/10 soreness. Rolanda Linares [address] [facility] [address], [place], [address], [facility] 10/27/2019 15:47:53 02/14/2020 text/html PT is a 64 yo female with past medical history significant for insomnia and chronic right shoulder, neck, upper back and facial pain who presents today for follow up OMT visit. Patient's progress with previous OMT sessions have allowed her to help care for her mother who is on hospice. Patient notes that she is having a flareup with more pain in her upper back mostly her left and her right forearm. Patient reports having no numbness in her right forearm. Has been compliant with all of her exercises and soaking in tub. Additionally admits excessive stressors with her family regarding her mom's declining health. Has been prescribed lorazepam for as needed use rarely use at home but has been using more since staying with family in [place]. Rolanda Linares DO [address] [place] [address], [place], [address], [facility] [place] 02/14/2020 10:12:33 OBGyn Episode No OBEpisode recorded.
--- OUTSIDE RECORDS SUMMARY | 2024-11-08 16:29 | XMS_ITS | Referral Summary ---
Author Organization [facility] Address [address] [place] [address] Care Team Providers Care Certified Caregiver Name Role Phone Emile Gongora MD Primary Care Provider [phone] [phone] Encounters Date Type Department Care Team Description 11/08/2024 ACO Quality [facility] Care Organization [address] [place] [address] Diane Garcia MA 10/28/2024 Telephone [facility] Care [address] [address] Diane Garcia MA Unsuccessful Phone Call 1 ([employer] AWV) from Last 3 Months Allergies Active Allergy Reactions Criticality Noted Date [...] on or from stairs or steps 02/06 Immunizations Immunization Administration Dates Next Due Influenza, Quadrivalent, Rec ombinant, Egg Free, Preservative Free, Intramuscular 07/10/2020 Influenza, Unspecified 05/13/2022(Deferr ed: Patient Refused),04/21/2021(Deferred: Patient Refused) Pfizer SARS-CoV-2 Monovalent Vaccination (12+ Yrs) PURPLE 03/07/2022,11/14/2020,10/24/2020 Social History Tobacco Use Types Packs/Day Years Used Date Smoking Tobacco: Never Smokeless Tobacco: Never Tobacco Cessation:Counseling Given: Not Answered PHQ-2 Answer Date Recorded PHQ-2 Total Score 0 05/13/2022 Comments No Sex and Gender Information Value Date Recorded Sex Assigned at Not on file 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 Gender Identity Not on file Sexual Orientation Not on file Last Filed Vital Signs Vital Sign Reading [...] 05/26/2021 1:58 PM CDT Plan of Treatment Not on file Procedures Procedure Name Priority Date/Time Associated Diagnosis Comments COLONOSCOPY Routine 07/20/2022 from Last 3 Months or Most Recently Relevant to Health Maintenance Results * COLONOSCOPY (07/20/2022) us Historical Provider HEALTH MAINTENANCE Edited Result - Final from Last 3 Months or Most Recently Relevant to Health Maintenance Insurance [facility] MEDICARE [facility] MEDICARE Address: [facility] [id number] [place] [address] AETNA MEDICARE AETNA MEDICARE Care Teams Certified Caregiver Relationship Specialty Start Date End Date [place] [address] PCP - General Family Medicine 05/23/22
--- NOTE | 2024-11-08 16:35 | ED_ITS ---
HPI - Fall General Chief Complaint: Fall Stated Complaint: fall Source: patient Mode of arrival: ambulatory Limitations: no limitations History of Present Illness HPI Narrative: Patient is a 69-year-old female with a fall on an outstretched hand bilaterally from ground level. She tripped and fell scraping her right knee and having pain of both wrists. complaint: fall Onset (ago): hour(s) ( One) Fall from: standing Fall witnessed: yes, by family Place fall occurred: street Loss of consciousness: none Prolonged down time: no Symptoms prior to fall: none Context: tripped/slipped Location of injury: other ( bilateral wrists and bilateral knees) Location of injury - extremities: Bilateral: knee ( bilateral wrists) Severity: mild Severity scale (1-10): 2 Quality: sharp Associated symptoms (after fall): denies Related Data Home Medications ?Medication ?Instructions ?Recorded ?Confirmed ?Last Taken ?Type aspirin 81 mg capsule 81 mg PO DAILY 09/27/21 07/05/22 07/04/22 History multivitamin with minerals-ferrous 1 tablet PO DAILY 09/27/21 07/05/22 07/04/22 History sulfate 4.5 mg iron tablet (One Daily Multivitamins with Minerals) acyclovir 400 mg tablet 400 mg PO .PRN 06/16/22 07/05/22 07/04/22 History lorazepam 1 mg tablet 1 mg PO DAILY PRN aniety 06/16/22 07/05/22 07/04/22 History Allergies Allergy/AdvReac Type Severity Reaction Status Date / Time azithromycin Allergy Unknown Palpitation Verified 07/11/23 09:19 s clonazepam Allergy Unknown Unknown Verified 07/11/23 09:19 codeine Allergy Unknown Hallucinati Verified 07/11/23 09:19 ng morphine Allergy Unknown Hypotension Verified 07/11/23 09:19 Review of Systems Review of Systems: All systems reviewed & are unremarkable except as noted in HPI and below Constitutional: Constitutional: Reports no additional constitutional complaints Eyes: Eyes: Reports no additional eye complaints ENT: Reports system reviewed and no additional complaints, except as documented Cardiovascular: Cardiovascular: Reports no additional cardiovascular complaints Respiratory: Respiratory: Reports no additional respiratory complaints Gastrointestinal: Gastrointestinal: Reports no additional gastrointestinal complaints Genitourinary: Genitourinary: Reports no additional female genitourinary complaints Musculoskeletal: Musculoskeletal: Reports no additional musculoskeletal complaints Integumentary/Breasts: Skin/Breast: Reports system reviewed and no additional complaints, except as docu Neurologic: Reports system reviewed and no additional complaints, except as documented Psychiatric: Psychiatric: Reports no additional psychiatric complaints Endocrine: Endocrine: Reports no additional endocrine complaints Hematologic/Lymphatic: Hematologic/Lymphatic: Reports no additional hematologic/lymphatic complaints Allergic/Immunologic: Allergic/Immunologic: Reports no additional allergic/immunologic complaints PMFSH Past Medical History Medical History Family history of colon cancer in mother Bloating Colon, diverticulosis LLQ pain Dysuria History of hemangioma Fibromyalgia History of pulmonary embolism Approx. 2001 Surgical History Surgical History Hx of hysterectomy 1989 History of ankle surgery 2013 plates and screws Family History Family History Other Bladder cancer Carcinoma of colon Depression Social History Social History Smoking status: Never smoker Alcohol intake: never Substance use: never Substance use type: does not use Living arrangements: with family Gender identity (if verbalized by the patient): Female Spiritual care concerns: No Exam Const: General: healthy appearing Nutritional Appearance: well nourished Orientation/consciousness: patient oriented x3 HENMT: Head: normal to inspection Ears: external ears normal Face/Nose/Sinus: Normal external nose present Eyes: Conjunctivae: conjunctivae normal Pupils: Equal, round and reactive pupils present EOM: EOMs intact bilaterally Neck: Neck: normal visual inspection Chest: Chest palpation & inspection: normal inspection of the chest Resp: Effort & Inspection: normal respiratory effort and not labored Auscultation: clear to auscultation bilaterally and no crackles Cardio: Rate: regular rate Rhythm: regular rhythm Heart sounds: no murmurs GI: Inspection: non-distended GI Palp: Yes Soft to palpation and No Tenderness to palpation present (GI) Auscultation: normal bowel sounds : General: Yes bladder normal to palpation Back/Spine/Pelvis: Back: no CVA tenderness Skin: General skin exam: normal color Rashes: no rashes Wounds: wound noted Other: right knee has a small abrasion with bleeding Neuro: General: patient oriented x3, moves all extremities, no meningeal signs, no focal motor deficits and CN's II-XI intact bilaterally Cranial nerves: Yes Nystagmus not present Speech: normal speech Gait exam (Neuro): Normal gait present Extrem: General: normal to inspection, no clubbing, cyanosis or edema and no pedal edema Other: bilateral wrists are tender to palpation; bilateral knees are tender to palpation; no significant changes seen Psych: Mental Status: mental status grossly normal Affect: normal affect Attitude: cooperative Course Vital Signs Vital signs: Vital Signs Temperature 36.2 C L 11/08/24 16:27 Pulse Rate 66 11/08/24 16:27 Respiratory Rate 16 11/08/24 16:27 Blood Pressure 156/68 H 11/08/24 16:27 Pulse Oximetry 98 11/08/24 16:27 Oxygen Delivery Room Air 11/08/24 16:27 Temperature 36.2 C L 11/08/24 16:27 Pulse Rate 66 11/08/24 16:27 Respiratory Rate 16 11/08/24 16:27 Blood Pressure 156/68 H 11/08/24 16:27 Pulse Oximetry 98 11/08/24 16:27 Oxygen Delivery Room Air 11/08/24 16:27 MDM - Fall MDM Narrative Medical decision making narrative: patient is a 69-year-old female with a fall from ground level mechanically and hurt both wrists and both knees. We will get x-rays at this time. No head or neck injury. We will give her a tetanus shot. Imaging Data Attestation: I personally reviewed and interpreted this imaging study as follows: Radiologist's impression: X-ray bilateral wrist is negative for acute process x-ray bilateral knees is negative for acute process Discharge Plan Discharge Clinical Impression: Contusion of multiple sites Fall Qualifiers: Encounter type: initial encounter Qualified Code(s): W19.XXXA - Unspecified fall, initial encounter Patient Disposition: Home, Self-Care Condition: Stable Instructions: Contusion in Adults (ED), Fall Prevention (ED) Patient Language: Palestinian Prescriptions: No Action aspirin 81 mg capsule 81 mg PO DAILY One Daily Multi-Vit w-Mineral 4.5 mg iron tablet 1 tablet PO DAILY sertraline [Zoloft] 100 mg tablet 100 mg PO DAILY Qty: 30 2RF acyclovir 400 mg tablet 400 mg PO .PRN lorazepam 1 mg tablet 1 mg PO DAILY PRN (Reason: aniety) Follow-up/Referrals: Harms,Emile Hayward M.D. [Primary Care Provider] - Time of Disposition: 18:31
--- NOTE | 2024-11-08 17:00 | PC.NURSE ---
report to neda bolton
--- NOTE | 2024-11-08 17:05 | PC.NURSE ---
ASSUMED CARE. REPORT RECEIVED FROM REENE BERRIOS. PATIENT CURRENTLY SITTING UP IN WHEEL CHAIR. WAITING TO GO TO RADIOLOGY.
--- OUTSIDE RECORDS SUMMARY | 2024-11-08 17:07 | XMS_ITS | Encounter Summary ---
Author Organization [facility] Healthcare Address [address] [place] [address] Care Team Providers Care Candy Decorator Name Role Phone Emile Gongora MD Primary Care Provider [phone] [phone] Reason for Visit * Reason Comments Chart Review [employer] AWV Encounter Details Date Type Department Care Team (Late st Contact Info) Description 11/08/2024 O Quality [facility] Care Organization [address] [place] [address] Diane Garcia MA [address] [facility] [address] [place] [address] Social History Tobacco Use Types Packs/Day Years Used Date Smoking Tobacco: Never Smokeless Tobacco: Never PHQ-2 Answer Date Recorded PHQ-2 Total Score 0 05/13/2022 Comments No Sex and Gender Information Value Date Recorded Sex Assigned at Not on file 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
--- OUTSIDE RECORDS SUMMARY | 2024-11-08 17:07 | XMS_ITS | Encounter Summary ---
Author Organization [facility] Address [address] [facility] [address] [place] [address] Phone Care Team Providers Care Tip Mender Name Role Phone Miscellaneous, Not In File Primary Care Provider Unavailable Miscellaneous, Not In File Primary Care Provider Unavailable Emile Gongora MD Primary Care Provider [phone] [phone] Encounter Details Date Type Department Care Team (Late st Contact Info) Description 08/05/2018 Ophth Exam [facility] Ophthalmology [address] [place] [address] 1[address] [place] [address] Taty Hernandez MD PhD [address] [place] [address] Social History Tobacco Use Types Packs/Day Years Used Date Smoking Tobacco: Never Assessed Comments Unknown Sex and Gender Information Value Date Recorded Sex Assigned at Not on file 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
--- OUTSIDE RECORDS SUMMARY | 2024-11-08 17:07 | XMS_ITS | Referral Summary ---
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
--- OUTSIDE RECORDS SUMMARY | 2024-11-08 17:07 | XMS_ITS | Clinical Summary ---
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
--- NOTE | 2024-11-08 17:15 | PC.NURSE ---
PATIENT TAKEN TO RADIOLOGY VIA WHEEL CHAIR
--- NOTE | 2024-11-08 17:28 | PC.NURSE ---
PATIENT RETURNED TO ROOM FROM RADIOLOGY. IS AT HER SIDE
--- NOTE | 2024-11-08 18:05 | PC.NURSE ---
PATIENT SITTING UP IN WHEEL CHAIR. PROVIDED ICE PACKS FOR HER KNEES. WAITING ON RADIOLOGY REPORTS. PATIENT DENIES ANY OTHER NEEDS. CALL LIGHT IN REACH
[2024-11-08] MEDS: TETANUS,DIPHTHERIA,AC PERTUSSIS ADULT 0.5 ML (ADACEL) IM (18:35)
[2024-11-08 18:54] VITALS: BP 142/70; PULSE 70; RESP 20; O2SAT 100
== END 2024-11-08 18:54 | disposition home or self-care (01) ==
PROVIDERS: Emergency Provider Emergency Medicine; PCP Family Medicine
DX: S80.211A Abrasion, right knee, initial encounter (principal); Z23 Encounter for immunization; W01.0XXA Fall on same level from slipping, tripping and stumbling without subsequent striking against object, initial encounter
CPT/HCPCS: 73110; 73562; 90471; 90715; 99284